=== PATIENT | female | born 1985 | race Caucasian/White ===

== ENCOUNTER 2025-01-13 16:20 | Inpatient (IN) | payer BC, OTHER ==
[~2025-01-13] VITALS: Ht 154.9 cm; Wt 105.0 kg
--- NOTE | 2025-01-13 16:27 | ED.PDOC ---
History of Present Illness HPI Comments 40 year old female presents to the ED for the c/c of SOB. Pt states that she has been sick since the 03 of January, and went to [facility] and has Dx with Bronchitis. Pt states that her SOB has not improved and has a worsening factor when walking and Coughing. EMS states that she is currently SAT on 94% RA at this point in time. No other symptoms or modifying factors reported at this time. Time Seen by MD: 16:23 Reviewed Notes: Nurses Notes, Audience Coordinator Notes, Medications, Allergies Allergies: Coded Allergies: Codeine (Verified Allergy, Mild, 01/13/25) UPSET STOMACH PER PT Niacin (Verified Allergy, Unknown, 01/13/25) Information Source: Patient, Emergency Med Personnel Mode of Arrival: EMS Severity: Moderate Prehospital treatment: Oxygen Past Medical History PAST MEDICAL HISTORY: Denies Surgical History: Denies all surgeries [employer]PER[employer]OR [employer] History: No Pertinent [employer]PER[employer] History Family History Family History: Reviewed,noncontributory to illness, No family hx of Cancer, No family hx of DM, No family hx of Heart claudia, No family hx of HTN, No family hx ofKidney claudia, No family hx of Liver claudia, No family hx of Lung claudia, No family hx of Stroke Social History Smoker: Non-Smoker Alcohol: Rarely Drugs: Denies Drug Use Lives In: Home Constitutional: denies: chills, diaphoresis, fatigue, fever, malaise, sweats, w eakness, others EENTM: denies: blurred vision, double vision, ear bleeding, ear discharge, ear drainage, ear pain, ear ringing, eye pain, eye redness, hearing loss, mouth pain, mouth swelling, nasal discharge, nose bleeding, nose congestion, nose pain, photophobia, tearing, throat pain, throat swelling, voice changes, others Respiratory: reports: SOB at rest, shortness of breath, SOB with excertion; de nies: cough, hemoptysis, orthopnea, stridor, wheezing, others Cardiovascular: denies: chest pain, dizzy spells, diaphoresis, Dyspnea on exertion, edema, irregular heart beat, left arm pain, lightheadedness, palpitations, PND, syncope, others Gastrointestinal: denies: abdomen distended, abdominal pain, blood streaked bowels, constipated, diarrhea, dysphagia, difficulty swallowing, hematemesis, melena, nausea, poor appetite, poor fluid intake, rectal bleeding, rectal pain, vomiting, others Genitourinary: denies: abnormal vagina bleeding, burning, dyspareunia, dysuria, flank pain, frequency, hematuria, incontinence, pain, , vagina discharge, urgency, others Neurological: denies: dizziness, fainting, headache, left sided numbness, left sided weakness, numbness, paresthesia, pre-existing deficit, right sided numbness, right sided weakness, seizure, speech problems, tingling, tremors, weakness, others Musculoskeletal: denies: back pain, gout, joint pain, joint swelling, muscle pain, muscle stiffness, neck pain, others Integumetry: denies: bruises, change in color, change in hair/nails, dryness, laceration, lesions, lumps, rash, wounds, others Allergic/Immunocompromised: denies: Difficulty Healing, Frequent Infections, Hives, Itching, others Hematologic/Lymphatic: denies: anemia, blood clots, easy bleeding, easy bruising, swollen glands, others Endocrine: denies: excessive hunger, excessive sweating, excessive thirst, excessive urination, flushing, intolerance to cold, intolerance to heat, unexplained weight gain, unexplained weight loss, others Psychiatric: denies: anxiety, bipolar disorder, depression, hopeless, panic disorder, schizophrenia, sleepless, suicidal, others All Other Systems: Reviewed and Negative Physical Exam General Appearance: Moderate Distress HEENT: Normal ENT Inspection, Pharynx Normal, TMs Normal Neck: Full Range of Motion, Non-Tender, Normal, Normal Inspection Respiratory: Chest Non-Tender, Lungs Clear, No Accessory Muscle Use, No Respiratory Distress, Normal Breath Sounds Cardiovascular: No Edema, No JVD, No Murmur, No Gallop, Tachycardia Breast Exam: Deferred Gastrointestinal: No Organomegaly, Non Tender, No Pulsatile Mass, Normal Bowel Sounds, Soft Genitalia: Deferred Pelvic: Deferred Rectal: Deferred Extremities: No calf tenderness, Normal capillary refill, No pedal edema Musculoskeletal : Apperance: Normal Neurologic: Alert, communications technologist II-XII nml as Tested, Motor Weakness, Normal Affect, Normal Mood, No Sensory Deficits Cerebellar Function: Normal Reflexes: Normal Skin: Dry, Normal Color, Warm Lymphatic: No Adenopathy Was a procedure done? Was a procedure done?: No Differential Dx Considerations may include: Sepsis, pneumonia, generalized weakness, electrolyte imbalance, dehydration X-Ray, Labs, Meds, VS Vital Signs Date Time Temp Pulse Resp B/P (MAP) Pulse Ox O2 Delivery O2 Flow Rate FiO2 01/13/25 18:52 139 16 135/79 (97) 92 01/13/25 17:04 16 96 Nasal Cannula* 3 32 01/13/25 16:57 97.6 152 18 165/80 (108) 95 97.6 01/13/25 16:57 152 18 95 Nasal Cannula* 3 32 01/13/25 16:40 20 94 Nasal Cannula* 4 36 01/13/25 16:40 98.2 147 20 138/107 (117) 94 98.2 01/13/25 16:20 132 Lab Test 01/13/25 18:12 01/13/25 17:00 01/13/25 16:40 Range/Units Troponin I High Sensitivity 4 4 </=34 ng/L Urine Color Light-yellow Yellow Urine Clarity Turbid H Clear Urine pH 6.5 5.0-9.0 Urine Specific [place] 1.008 1.001-1.035 Urine Protein Negative Negative Urine Ketones 1+ H Negative Urine Blood 2+ H Negative /uL Urine Nitrite Negative Negative Urine Bilirubin Negative Negative Urine Urobilinogen Normal Negative mg/dL Urine Leukocyte Esterase Trace Negative /uL Urine RBC 3 0 - 4 /hpf Urine Microscopic WBC 1 0-5 /HPF Urine Squamous Epithelial Cells Mod <5 /hpf Urine Bacteria Few H None Seen /hpf Urine Glucose Normal Normal mg/dL Urine Opiates Screen Pos NEGATIVE Urine Fentanyl Screen Neg NEGATIVE Urine Barbiturates Screen Neg NEGATIVE Urine Phencyclidine Screen Neg NEGATIVE Urine Amphetamines Screen Neg NEGATIVE Urine Benzodiazepines Screen Neg NEGATIVE Urine Cocaine Screen Neg NEGATIVE Urine Cannabinoids Screen Neg NEGATIVE White Blood Count 15.7 H 4.4-10.8 10^3/uL Red Blood Count 5.36 H 4.0-5.20 10^6/uL Hemoglobin 15.6 12.2-16.2 g/dL Hematocrit 45.3 36.0-46.0 % Mean Corpuscular Volume 84.6 80.0-100.0 fL Mean Corpuscular Hemoglobin 29.0 28.0-32.0 pg Mean Corpuscular Hemoglobin Concent 34.3 32.0-36.0 g/dL Red Cell Distribution Width 13.4 11.8-14.3 % Platelet Count 589 H 140-450 10^3/uL Mean Platelet Volume 5.9 L 6.9-10.8 fL Neutrophils (%) (Auto) 91.5 H 37.0-80.0 % Lymphocytes (%) (Auto) 5.2 L 10.0-50.0 % Monocytes (%) (Auto) 2.4 0.0-12.0 % Eosinophils (%) (Auto) 0.1 0.0-7.0 % Basophils (%) (Auto) 0.8 0.0-2.0 % Neutrophils # (Auto) 14.4 H 1.6-8.6 10 ^3/uL Lymphocytes # (Auto) 0.8 0.4-5.4 10 ^3/uL Monocytes # (Auto) 0.4 0-1.3 10 ^3/uL Eosinophils # (Auto) 0 0-0.8 10 ^3/uL Basophils # (Auto) 0.1 0-0.2 10 ^3/uL Nucleated Red Blood Cells 0.0 % D-Dimer, Quantitative 0.29 0.0-0.49 mg/L FEU Sodium Level 140 136-145 mmol/L Potassium Level 3.3 L 3.5-5.1 mmol/L Chloride Level 104 98-107 mmol/L Carbon Dioxide Level 22 20-31 mmol/L Anion Gap 14 5-15 Blood Urea Nitrogen 9 9-23 mg/dL Creatinine 0.71 0.550-1.02 mg/dL Glomerular Filtration Rate Calc 110 >90 mL/min BUN/Creatinine Ratio 12.7 10.0-20.0 Serum Glucose 148 H 74-106 mg/dL Calcium Level 10.0 8.7-10.4 mg/dL B-Type Natriuretic Peptide 5.01 0-100 pg/mL Thyroid Stimulating Hormone (TSH) 0.89 0.55-4.78 uIU/mL Current Medications Medications (Trade) Dose Ordered Sig/Jazmin Route Start Time Stop Time Status Last Admin Methylprednisolone Sodium Succinate (Solu Medrol) 125 mg ONCE ONCE IV 01/13/25 16:30 01/13/25 16:31 DC 01/13/25 17:58 Ipratropium [place] (Atrovent Medneb) 1 mg ONCE ONCE HHN 01/13/25 16:30 01/13/25 16:31 DC 6/23/25 17:04 Albuterol (Ventolin Medneb) 10 mg ONCE ONCE HHN 01/13/25 16:30 01/13/25 16:31 DC 01/13/25 17:03 Acetaminophen/ Hydrocodone Bitart ([place] 10/325MG Tab) 1 tab ONCE ONCE PO 01/13/25 18:15 01/13/25 18:16 DC 01/13/25 18:30 Sodium Chloride 1,000 ml @ 1,000 mls/hr Q1H ONCE IV 01/13/25 19:15 01/13/25 20:14 DC 01/13/25 19:32 IMPRESSION: No acute cardiopulmonary process. The patient was given Solu-Medrol 125 mg IV push The patient was also given Atrovent as a breathing treatment The patient was given [place] for the pain The patient was given 1 L bolus of normal saline The TSH is within normal range The patient's CBC shows an elevated white blood cell count of 15.7 The patient is being given medications per sepsis protocol The patient is being given Rocephin and vancomycin The urine test is negative for any infection The patient is being admitted Images Reviewed?: Images reviewed and evaluated by me Time of 1ST Reevaluation: 16:53 Reevaluation 1ST: Unchanged Patient Education/Counseling: Diagnosis, Treatment, Prognosis Family Education/Counseling: No Family Present SEPSIS Sepsis Screen Physician Orders Med Neb Initial Treatment (01/13/25 16:24) Chest Portable (01/13/25 16:24) Heplock Iv (01/13/25 16:24) Pulse Oximetry (01/13/25 16:24) Printing Plate Clerk (01/13/25 16:24) Blood Pressure (01/13/25 16:24) Troponin-I Hs (01/13/25 19:24) Electrocardigram (01/13/25 17:24) Electrocardigram (01/13/25 19:24) Blood Culture (01/13/25 19:01) Vital Signs Date Time Temp Pulse Resp B/P (MAP) Pulse Ox O2 Delivery O2 Flow Rate FiO2 01/13/25 18:52 139 16 135/79 (97) 92 01/13/25 17:04 16 96 Nasal Cannula* 3 32 01/13/25 16:57 97.6 152 18 165/80 (108) 95 97.6 01/13/25 16:57 152 18 95 Nasal Cannula* 3 32 01/13/25 16:40 20 94 Nasal Cannula* 4 36 01/13/25 16:40 98.2 147 20 138/107 (117) 94 98.2 01/13/25 16:20 132 Laboratory Tests Test 01/13/25 16:40 White Blood Count 15.7 10^3/uL (4.4-10.8) H Medications Medications Dose Ordered Sig/Jazmin Route Start Time Stop Time Status Last Admin Dose Admin Acetaminophen/ Hydrocodone Bitart 1 tab ONCE ONCE PO 01/13/25 18:15 01/13/25 18:16 DC 01/13/25 18:30 Albuterol 10 mg ONCE ONCE HHN 01/13/25 16:30 01/13/25 16:31 DC 01/13/25 17:03 Ipratropium [place] 1 mg ONCE ONCE N 01/13/25 16:30 01/13/25 16:31 DC 01/13/25 17:04 Methylprednisolone Sodium Succinate 125 mg ONCE ONCE IV 01/13/25 16:30 01/13/25 16:31 DC 01/13/25 17:58 Sodium Chloride 1,000 ml @ 1,000 mls/hr Q1H ONCE IV 01/13/25 19:15 01/13/25 20:14 DC 01/13/25 19:32 Departure 1 Departure Time of Disposition: 21:36 Impression: Primary Impression: Tachycardia Additional Impressions: Acute respiratory distress Elevated lactic acid level Generalized weakness Disposition: ADMITTED INPATIENT [facility]mit to: [facility] Condition: Fair Critical Care Note Critical Care Time?: Yes (45 min-critical care time only) Stability Stability form required: Yes Unstable for transfer: Telemetry monitoring (Telemetry monitoring required), ED Physician Assesment (Clinical assesment) Heart Score Heart Score: Heart Score Response (Comments) Value History N/A 0 EKG N/A 0 Age N/A 0 Risk Factors N/A 0 Troponin N/A 0 Total 0 I personally scribed for ELIEZER MCADAMS MD ([email or web address]) on 01/13/25 at 16:27. Electronically submitted by Isaías Headley ([email or web address]). I personally scribed for ELIEZER MCADAMS MD ([email or web address]) on 01/13/25 at 18:47. Electronically submitted by Isaías Headley ([email or web address]). ELIEZER MCADAMS MD Jan 13, 2025 16:27
[2025-01-13 16:57] VITALS: PULSE 152; RESP 18; O2SAT 95
[2025-01-13 16:58] LABS: Nucleated Red Blood Cells % 0.0 %
[2025-01-13 17:00] LABS: Hematocrit 45.3 % (36.0-46.0); Hemoglobin 15.6 g/dL (12.2-16.2); Mean Corpuscular Hemoglobin 29.0 pg (28.0-32.0); Mean Corpuscular Volume 84.6 fL (80.0-100.0)
[2025-01-13] MEDS: ALBUTEROL SULF 2.5 MG/0.5ML(0.5%) NEB SOLN HHN ONE (17:03)
[2025-01-13] MEDS: IPRATROPIUM BROM 0.5 MG/2.5ML INH SOL HHN ONE (17:04)
[2025-01-13 17:10] LABS: Chloride 104 mmol/L (98-107); Sodium 140 mmol/L (136-145)
--- NOTE | 2025-01-13 17:10 | DVH ---
EXAM: XR Chest, 1 View CLINICAL INDICATION: sob TECHNIQUE: Frontal view of the chest. COMPARISON: No relevant prior studies available. FINDINGS: LUNGS AND PLEURAL SPACES: Unremarkable. No consolidation. No pneumothorax. HEART: Unremarkable. No cardiomegaly. MEDIASTINUM: Unremarkable. Normal mediastinal contour. BONES/JOINTS: Unremarkable. No acute fracture. OTHER FINDINGS: Comparison None. IMPRESSION: No acute cardiopulmonary process. HS:Y
[2025-01-13 17:11] LABS: Anion Gap 14 (5-15); Carbon Dioxide 22 mmol/L (20-31)
[2025-01-13 17:12] LABS: Calcium 10.0 mg/dL (8.7-10.4)
[2025-01-13 17:13] LABS: Potassium 3.3 mmol/L (3.5-5.1)
[2025-01-13 17:17] LABS: BUN/Creatinine Ratio 12.7 (10.0-20.0)
[2025-01-13 17:18] LABS: Blood Urea Nitrogen 9 mg/dL (9-23); Glucose 148 mg/dL (74-106)
[2025-01-13 17:34] LABS: Urine Protein, UAD Negative (Negative)
[2025-01-13] MEDS: methylPREDNISolone SOD SUCC 125 MG/2 ML VL IV ONE (17:58)
[2025-01-13] MEDS: HYDROcodone-ACET 10/325MG TAB PO ONE (18:30)
--- NOTE | 2025-01-13 18:55 | ECG ---
[facility] Test Date: 2025-01-13 Test Time: 16:20:08 Pat Name: NICOLE TERAN Department: ED Room: 0215T Gender: F Parlor Maid: DULCE : 1985 Requested By: ELIEZER MCADAMS Order Number: [id number] Reading MD: Amos Asencio Measurements Intervals [place] Rate: 132 P: 69 MN: 145 QRS: 8 QRSD: 75 T: 34 QT: 293 QTc: 434 Interpretive Statements Sinus tachycardia Electronically Signed On 01-14-2025 22:56:01 PDT by Amos Asencio Please click the below link to view image of tracing.
[2025-01-13] MEDS: SODIUM CHLORIDE 0.9% 1,000 ML IV ONE ×2 (19:32→22:00)
[2025-01-13 20:00] VITALS: BP 135/79; PULSE 139; RESP 16; TEMP 97.6; O2SAT 96
[2025-01-13] MEDS ORDERED: ACETAMINOPHEN 325 MG TAB PO PRN (20:00)
[2025-01-13] MEDS ORDERED: MORPHINE SULFATE INJ 2 MG/ml SYRG IV PRN (20:00)
[2025-01-13] MEDS ORDERED: ONDANSETRON HCL 4 MG/2 ML VIAL IV PRN (20:00)
[2025-01-13] MEDS: AZITHROMYCIN 500MG/ 250ML 250 ML IV ONE (20:00)
[2025-01-13] MEDS ORDERED: NITROGLYCERIN 0.4 MG SL TAB SL PRN (20:00)
[2025-01-13] MEDS ORDERED: TEMAZEPAM 15 MG CAP PO PRN (20:00)
[2025-01-13 20:20] VITALS: PULSE 128; RESP 20; O2SAT 96
--- NOTE | 2025-01-13 20:39 | DVH ---
Procedure: CT CHEST WITHOUT CONTRAST Reason for study/Clinical History: sob Comparison Study: None Exam Date: 01/13/2025 08:07 PM TECHNIQUE: Multidetector CT of the chest was performed from the lung apices to the upper abdomen with out the use of intravenous contract. Axial, coronal and sagittal multiplanar reformats were performed . Radiation Dose Information: CT Dose: CTDI volume is 14.91 mGy. Dose-length product is 485.01 mGy*cm The dose indicators for CT are the volume Computed Tomography (CT) Dose Index (CTDIvol) and the Dose Length Product (DLP), and are measured in units of mGy and mGy-cm, respectively. These indicators are not patient dose, but values generated from the CT scanner acquisition factors. The report includes radiation exposure data for exposures received during this examination. FINDINGS: Lower neck: Normal thyroid. Lungs: Multifocal pneumonia throughout both lungs, most prominent in the left lower lobe. Heart/Vascular Structures: Normal heart size. No pericardial effusion. Lymph Nodes: Mediastinal lymphadenopathy, likely reactive. Pleura: No pleural effusion or significant pneumothorax. Musculoskeletal: No acute osseous abnormality. Soft tissues: Normal. Upper abdomen: Limited portions of the upper abdomen are unremarkable. IMPRESSION: 1. Multifocal pneumonia throughout both lungs, most prominent in the left lower lobe. 2. Mediastinal lymphadenopathy, likely reactive Radiation optimization: All CT scans at this facility use at least one of these dose optimization adam hniques: automated exposure control mA and/or kV adjustment per patient size (includes targeted exam s where dose is matched to clinical indication) or iterative reconstruction.
[2025-01-13 20:40] LABS: Phencyclidine Screen, Urine Neg (NEGATIVE)
[2025-01-13 20:50] LABS: Amphetamine Screen, Urine Neg (NEGATIVE); Barbiturate Scree,Urine Neg (NEGATIVE); Benzodiazephine Screen, Urine Neg (NEGATIVE); Cannabinoid Screen, Urine Neg (NEGATIVE); Cocaine Screen, Urine Neg (NEGATIVE); Opiate Scree,Urine Pos (NEGATIVE)
[2025-01-13 20:54] LABS: Lactic Acid w/Reflex 4.8 mmol/L (0.4-2.0)
[2025-01-13] MEDS: methylPREDNISolone SOD SUCC 40 MG/ML VL IV SCH (20:54)
[2025-01-13] MEDS: SODIUM CHLORIDE 0.9% 500 ML IV ONE (21:00)
--- NOTE | 2025-01-13 21:07 | DVHHP2 ---
History of Present Illness Reason for Visit: Shortness for breath History of Present Illness 40-year-old female presents for evaluation of shortness for breath. Patient reports being seen at [facility] two weeks ago and was diagnosed with acute bronchitis. She was sent home with prednisone and Augmentin. She states her symptoms have not resolved. She reports having a productive cough with yellowish phlegm. She reports worsening shortness for breath and unable to take deep breaths. Denies chest pain or palpitations. No other acute complaints reported. Past Medical History Hypertension Past Surgical History Denies Family History Noncontributory Smoke: No ALCOHOL: occassional Drugs: None Lives: with Family Review of Systems Review of Systems Review of systems are currently negative addressed in HPI. Allergies: Coded Allergies: Codeine (Verified Allergy, Mild, 01/13/25) UPSET STOMACH PER PT Niacin (Verified Allergy, Unknown, 01/13/25) Medications Current Medications Medications Dose Ordered Sig/Jazmin Route Start Time Stop Time Status Last Admin Dose Admin Albuterol 2.5 mg Q6HPRN PRN NEB 01/13/25 20:00 Ipratropium [place] 0.5 mg Q6HPRN PRN NEB 01/13/25 20:00 Azithromycin 250 ml @ 125 mls/hr DAILY IV 01/14/25 10:00 Methylprednisolone Sodium Succinate 40 mg BID IV 01/13/25 22:00 01/13/25 20:54 40 MG Amlodipine [place] 10 mg DAILY PO 01/14/25 10:00 Acetaminophen/ Hydrocodone Bitart 1 tab Q4HP PRN PO 01/13/25 20:00 Temazepam 15 mg QHSP PRN PO 01/13/25 20:00 Ondansetron HCl 4 mg Q4HP PRN IV 01/13/25 20:00 Acetaminophen 650 mg Q6HP PRN PO 01/13/25 20:00 Nitroglycerin 0.4 mg Q5MINP PRN SL 01/13/25 20:00 Morphine Sulfate 2 mg Q30M PRN IV 01/13/25 20:00 Exam Vital Signs Vital Signs Date Time Temp Pulse Resp B/P (MAP) Pulse Ox O2 Delivery O2 Flow Rate FiO2 01/13/25 20:20 128 20 96 Nasal Cannula* 3 32 01/13/25 20:20 98.1 141/88 (105) 98.1 Exam Gen: 40-year-old female in mild distress, morbidly obese Skin: Warm, dry, normal color and texture, no rash. HEENT: Normocephalic atraumatic, mucous membranes moist and pink. Neck: Cervical and supraclavicular nodes normal without enlargement, trachea is midline, thyroid gland is normal without masses. Pulmonary: Diminished breath sounds bilaterally Cardiac: Sinus tachycardia Abdomen: Soft, nontender, nondistended, bowel sounds present all 4 quadrants, no guarding, no rigidity, no organomegaly. Extremities: No cyanosis, clubbing, no edema Neuro: Cranial nerves II through XII grossly intact, normal affect and speech, no focal motor deficits. Labs/Xrays ORDERING PHYSICIAN: ELIEZER MCADAMS MD PROCEDURE(s): CXRP - CHEST PORTABLE REASON: sob ORDER NUMBER(s): [id number], ACCESSION NUMBER(s): [id number] EXAM: XR Chest, 1 View CLINICAL INDICATION: sob TECHNIQUE: Frontal view of the chest. COMPARISON: No relevant prior studies available. FINDINGS: LUNGS AND PLEURAL SPACES: Unremarkable. No consolidation. No pneumothorax. HEART: Unremarkable. No cardiomegaly. MEDIASTINUM: Unremarkable. Normal mediastinal contour. BONES/JOINTS: Unremarkable. No acute fracture. OTHER FINDINGS: Comparison None. IMPRESSION: No acute cardiopulmonary process. HS:Y RING PHYSICIAN: OG CLEMENTE PROCEDURE(s): CX2CT - CHEST WITHOUT CONTRAST REASON: sob ORDER NUMBER(s): [id number], ACCESSION NUMBER(s): [id number] Procedure: CT CHEST WITHOUT CONTRAST Reason for study/Clinical History: sob Comparison Study: None Exam Date: 01/13/2025 08:07 PM TECHNIQUE: Multidetector CT of the chest was performed from the lung apices to the upper abdomen without the use of intravenous contract. Axial, coronal and sagittal multiplanar reformats were performed. Radiation Dose Information: CT Dose: CTDI volume is 14.91 mGy. Dose-length product is 485.01 mGy*cm The dose indicators for CT are the volume Computed Tomography (CT) Dose Index (CTDIvol) and the Dose Length Product (DLP), and are measured in units of mGy and mGy-cm, respectively. These indicators are not patient dose, but values generated from the CT scanner acquisition factors. The report includes radiation exposure data for exposures received during this examination. FINDINGS: Lower neck: Normal thyroid. Lungs: Multifocal pneumonia throughout both lungs, most prominent in the left lower lobe. Heart/Vascular Structures: Normal heart size. No pericardial effusion. Lymph Nodes: Mediastinal lymphadenopathy, likely reactive. Pleura: No pleural effusion or significant pneumothorax. Musculoskeletal: No acute osseous abnormality. Soft tissues: Normal. Upper abdomen: Limited portions of the upper abdomen are unremarkable. IMPRESSION: 1. Multifocal pneumonia throughout both lungs, most prominent in the left lower lobe. 2. Mediastinal lymphadenopathy, likely reactive Radiation optimization: All CT scans at this facility use at least one of these dose optimization techniques: automated exposure control mA and/or kV adjustment per patient size (includes targeted exams where dose is matched to clinical indication) or iterative reconstruction. Labs Test 01/13/25 20:51 01/13/25 20:07 01/13/25 17:00 01/13/25 16:40 Range/Units Lactic Acid Level 4.8 *H 0.4-2.0 mmol/L Urine Color Light-yellow Yellow Urine Clarity Turbid H Clear Urine pH 6.5 5.0-9.0 Urine Specific [place] 1.008 1.001-1.035 Urine Protein Negative Negative Urine Ketones 1+ H Negative Urine Blood 2+ H Negative /uL Urine Nitrite Negative Negative Urine Bilirubin Negative Negative Urine Urobilinogen Normal Negative mg/dL Urine Leukocyte Esterase Trace Negative /uL Urine RBC 3 0 - 4 /hpf Urine Microscopic WBC 1 0-5 /HPF Urine Squamous Epithelial Cells Mod <5 /hpf Urine Bacteria Few H None Seen /hpf Urine Glucose Normal Normal mg/dL Urine Opiates Screen Pos NEGATIVE Urine Fentanyl Screen Neg NEGATIVE Urine Barbiturates Screen Neg NEGATIVE Urine Phencyclidine Screen Neg NEGATIVE Urine Amphetamines Screen Neg NEGATIVE Urine Benzodiazepines Screen Neg NEGATIVE Urine Cocaine Screen Neg NEGATIVE Urine Cannabinoids Screen Neg NEGATIVE White Blood Count 15.7 H 4.4-10.8 10^3/uL Red Blood Count 5.36 H 4.0-5.20 10^6/uL Hemoglobin 15.6 12.2-16.2 g/dL Hematocrit 45.3 36.0-46.0 % Mean Corpuscular Volume 84.6 80.0-100.0 fL Mean Corpuscular Hemoglobin 29.0 28.0-32.0 pg Mean Corpuscular Hemoglobin Concent 34.3 32.0-36.0 g/dL Red Cell Distribution Width 13.4 11.8-14.3 % Platelet Count 589 H 140-450 10^3/uL Mean Platelet Volume 5.9 L 6.9-10.8 fL Neutrophils (%) (Auto) 91.5 H 37.0-80.0 % Lymphocytes (%) (Auto) 5.2 L 10.0-50.0 % Monocytes (%) (Auto) 2.4 0.0-12.0 % Eosinophils (%) (Auto) 0.1 0.0-7.0 % Basophils (%) (Auto) 0.8 0.0-2.0 % Neutrophils # (Auto) 14.4 H 1.6-8.6 10 ^3/uL Lymphocytes # (Auto) 0.8 0.4-5.4 10 ^3/uL Monocytes # (Auto) 0.4 0-1.3 10 ^3/uL Eosinophils # (Auto) 0 0-0.8 10 ^3/uL Basophils # (Auto) 0.1 0-0.2 10 ^3/uL Nucleated Red Blood Cells 0.0 % D-Dimer, Quantitative 0.29 0.0-0.49 mg/L FEU Sodium Level 140 136-145 mmol/L Potassium Level 3.3 L 3.5-5.1 mmol/L Chloride Level 104 98-107 mmol/L Carbon Dioxide Level 22 20-31 mmol/L Anion Gap 14 5-15 Blood Urea Nitrogen 9 9-23 mg/dL Creatinine 0.71 0.550-1.02 mg/dL Glomerular Filtration Rate Calc 110 >90 mL/min BUN/Creatinine Ratio 12.7 10.0-20.0 Serum Glucose 148 H 74-106 mg/dL Calcium Level 10.0 8.7-10.4 mg/dL B-Type Natriuretic Peptide 5.01 0-100 pg/mL Thyroid Stimulating Hormone (TSH) 0.89 0.55-4.78 uIU/mL Assessment/Plan Assessment/Plan Assessment Multifocal pneumonia Acute respiratory distress Early sepsis Morbid obesity Plan Admit the patient to telemetry to the hospitalist Maintenance IV fluids Rocephin/azithromycin Methylprednisone Med nebs Continue treatment per orders. Plan discussed with: Patient My Orders Orders - OG CLEMENTE AGACNP Procedure Category Date Status Time Albuterol Medneb PHA 01/13/25 In Process (Ventolin Medneb) 20:00 Ipratropium Medneb PHA 01/13/25 In Process (Atrovent Medneb) 20:00 Azithromycin 500mg/ PHA 01/14/25 In Process 250ml (Zithromax 50 10:00 Azithromycin 500mg/ PHA 01/13/25 In Process 250ml (Zithromax 50 20:[address] 01/13/25 Resulted 19:46 Methylprednisolone PHA 01/13/25 In Process Sod Succ (Solu Medrol 22:00 Amlodipine Tablet PHA 01/14/25 In Process (Norvasc Tablet) 10:00 Basic Metabolic Panel LAB 01/14/25 Verified 04:00 Admit ADMIT 01/13/25 Transmitted 19:46 Hydrocodone-Acet PHA 01/13/25 In Process 5/325mg Tab ([place] 20:00 Temazepam (Restoril) PHA 01/13/25 In Process 20:00 Ondansetron Hcl PHA 01/13/25 In Process (Zofran) 20:00 Complete Blood Count LAB 01/14/25 Verified 04:00 Cardiac DIET 01/14/25 Transmitted Diet-2gna,Lofat,Lochol Breakfast Echo 2d Mode Cardiac US 01/13/25 Logged DOP 19:46 Condition: Fair TESSA 01/13/25 In Process 19:46 Acetaminophen Tablet PHA 01/13/25 In Process (Tylenol Tablet) 20:00 Bedrest With Bathroom TESSA 01/13/25 In Process Privileg 19:46 Nitroglycerin PHA 01/13/25 In Process Sublingual (Ntrostat 20:00 Morphine Sulfate PHA 01/13/25 In Process Injection 20:00 Stat Ekg For Chest TESSA 01/13/25 In Process Pain 19:46 Notify Of Changes TESSA 01/13/25 In Process From Base 19:46 Cab Station Attendant For TESSA 01/13/25 In Process 24 Hours 19:46 Emergency Dysrhythmia TESSA 01/13/25 In Process Protocol 19:46 Rhythm Strips Once TESSA 01/13/25 In Process Every Shift 19:46 Oxygen By Nasal RT 01/13/25 Transmitted Cannula 19:46 Sodium Chloride 0.9% PHA 01/13/25 Logged 21:00 Date of Service: Jan 13, 2025 Billing Provider: OG CLEMENTE Common Visit Codes: [id number] INP/OBS CARE (HIGH) OG CLEMENTE Jan 13, 2025 21:07
[2025-01-13] MEDS: SODIUM CHLORIDE 0.9% 1,450 ML IV ONE (21:45)
[2025-01-13] MEDS ORDERED: VANCOMYCIN PER PHARMACY 0 MG IV SCH ×3 (21:48→22:15)
[2025-01-13] MEDS: VANCOMYCIN 1GM/200ML PM 200 ML IV SCH (22:00)
[2025-01-13] MEDS: cefTRIAXone 1GM/50ML D5W 50 ML IV ONE (22:09)
[2025-01-13] MEDS: HYDROcodone-ACET 5/325MG TAB PO PRN (22:09)
[2025-01-14] VITALS (7 sets, daily range): BP systolic 138–160; BP diastolic 97–106; PULSE 100–133; RESP 18–20; TEMP 97.7–98.4; O2SAT 93–97
[2025-01-14 02:01] LABS: COVID19 ANTIGEN SOFIA FIA NEGATIVE (NEGATIVE)
[2025-01-14 06:54] LABS: Nucleated Red Blood Cells % 0.0 %
[2025-01-14 06:59] LABS: Hematocrit 42.4 % (36.0-46.0); Hemoglobin 14.4 g/dL (12.2-16.2); Mean Corpuscular Hemoglobin 28.4 pg (28.0-32.0); Mean Corpuscular Volume 83.9 fL (80.0-100.0)
[2025-01-14 07:02] LABS: Potassium 3.7 mmol/L (3.5-5.1); Sodium 144 mmol/L (136-145)
[2025-01-14 07:03] LABS: Anion Gap 13 (5-15); Calcium 9.6 mg/dL (8.7-10.4); Carbon Dioxide 22 mmol/L (20-31)
[2025-01-14 07:07] LABS: Chloride 109 mmol/L (98-107)
[2025-01-14 07:08] LABS: BUN/Creatinine Ratio 12.7 (10.0-20.0); Blood Urea Nitrogen 9 mg/dL (9-23)
[2025-01-14 07:09] LABS: Glucose 174 mg/dL (74-106)
[2025-01-14] MEDS ORDERED: VANCOMYCIN 1GM/200ML PM 200 ML IV ONE (09:00)
[2025-01-14] MEDS: cefTRIAXone 1GM/50ML D5W 50 ML IV SCH (09:04)
[2025-01-14] MEDS: VANCOMYCIN 1GM/200ML PM 200 ML IV ONE (09:20)
[2025-01-14] MEDS: AZITHROMYCIN 500MG/ 250ML 250 ML IV SCH (10:25)
[2025-01-14] MEDS ORDERED: OXY5T PO (15:34)
[2025-01-14] MEDS ORDERED: DOCU-265 PO (15:34)
[2025-01-14] MEDS ORDERED: HYDR-4072 PO (15:36)
[2025-01-14] MEDS ORDERED: AMLO1TAB22 PO (15:38)
[2025-01-14] MEDS ORDERED: AML5T PO (15:38)
--- NOTE | 2025-01-14 18:46 | DVHPNRES ---
Progress Note Date Seen: Jan 14, 2025 Resident Creating Document: BERYL SOLIS RESIDENT Has the PT tested + for MRSA If YES, has PT been informed?: No Medical Necessity Reason Pt with a Central, PICC or Fol: No Subjective Review of Systems 40-year-old female presents for evaluation of shortness for breath. Patient reports being seen at [facility] two weeks ago and was diagnosed with acute bronchitis. She was sent home with prednisone and Augmentin. She states her symptoms have not resolved. She reports having a productive cough with yellowish phlegm. She reports worsening shortness for breath and unable to take deep breaths. Denies chest pain or palpitations. No other acute complaints reported. Past Medical History Hypertension, autoimmnue disease? , neuropathic pain Past Surgical History Denies Family History Noncontributory Smoke: No ALCOHOL: occassional Drugs: None Lives: with Family 01/14/25: wbc is elevated, HR120- 110, CT scan: Multifocal pneumonia throughout both lungs, most prominent in the left lower lobe and Mediastinal lymphadenopathy, likely reactive, patient was started on ceftriaxone, vancomtycin and azithromycin, vanco is DC, ddimer neg Objective vital signs Vital Sign Date Time Temp Pulse Resp B/P (MAP) Pulse Ox O2 Delivery O2 Flow Rate FiO2 01/14/25 16:41 97.8 114 18 160/97 (118) 94 97.8 01/14/25 14:54 Nasal Cannula* 2 28 medications Current Medications Medications Dose Ordered Sig/Jazmin Route Start Time Stop Time Status Last Admin Dose Admin Albuterol 2.5 mg Q6HPRN PRN NEB 01/13/25 20:00 Ipratropium [place] 0.5 mg Q6HPRN PRN NEB 01/13/25 20:00 Azithromycin 250 ml @ 125 mls/hr DAILY IV 01/14/25 10:00 01/14/25 10:25 125 MLS/HR Methylprednisolone Sodium Succinate 40 mg BID IV 01/13/25 22:00 01/14/25 10:08 40 MG Amlodipine Besylate 10 mg DAILY PO 01/14/25 10:00 01/14/25 10:08 10 MG Acetaminophen 650 mg Q6HP PRN PO 01/13/25 20:00 Ceftriaxone Sodium 50 ml @ 100 mls/hr DAILY@09 IV 01/14/25 09:00 01/14/25 09:04 100 MLS/HR Acetaminophen/ Hydrocodone Bitart 1 tab Q6HP PRN PO 01/14/25 16:45 Ibuprofen 400 mg Q8HP PRN PO 01/14/25 16:45 Examination Gen: 40-year-old female in mild distress, morbidly obese Skin: Warm, dry, normal color and texture, no rash. HEENT: Normocephalic atraumatic, mucous membranes moist and pink. Neck: Cervical and supraclavicular nodes normal without enlargement, trachea is midline, thyroid gland is normal without masses. Pulmonary: Diminished breath sounds bilaterally Cardiac: Sinus tachycardia Abdomen: Soft, nontender, nondistended, bowel sounds present all 4 quadrants, no guarding, no rigidity, no organomegaly. Extremities: No cyanosis, clubbing, no edema Neuro: Cranial nerves II through XII grossly intact, normal affect and speech, no focal motor deficits. laboratory and microbiology Laboratory Tests 01/14/25 06:38 Test 01/14/25 06:38 Range/Units Serum Glucose 174 H 74-106 mg/dL Problem List/Assessment/Plan Problem List/Assessment/Plan Sepsis due to Multifocal pneumonia gram+/ gram- Acute respiratory failure resolved Ho Hypertension Ho autoimmune disease Ho neuropathic pain Morbid obesity Cardiac diet IV fluids given Rocephin/azithromycin DC Methylprednisone Med nebs Pain managmnet: patient at home was on norco 10, oxycodone: here: norco 10, ibuprofen and tylenol Case discussed with Dr Samuel Full code Plan discussed with: Patient, Other (rn) My Orders My Orders Orders - BERYL SOLIS Procedure Category Date Status Time Respiratory Culture LUNA 01/14/25 Uncollected W/ Gs 08:56 Mrsa Screen LUNA 01/14/25 In Process 08:56 Hydrocodone-Acet PHA 01/14/25 In Process 10/325mg Tab ([place] 16:45 Ibuprofen Tablet PHA 01/14/25 In Process (Motrin Tablet) 16:45 Date of Service: Jan 14, 2025 Billing Provider: SUE SAMUEL MD Common Visit Codes: [id number] INP/OBS CARE(HIGH) BERYL SOLIS Jan 14, 2025 18:46 SUE SAMUEL MD Jan 20, 2025 21:35
--- NOTE | 2025-01-14 23:32 | DVHSR ---
APPROVED REPORT EXAM: Two-dimensional and M-mode echocardiogram with Doppler and color Doppler. Blood Pressure: 142/84 mmHg INDICATION EF RISK FACTORS Obesity: Height: 5'1", Weight: 225 DIMENSIONS LVDd4.6 (3.8-5.7cm)LA (2D)3.3 (1.9-4.0cm)Aortic Root3.2 (2.0-3.7cm) LVDs2.7 (2.5-4.0cm)LA (MM) (1.9-4.0cm)Aortic Cusp Exc1.7 (1.5-2.0cm) EF (%) 60.0 (55-70%)Rt. Atrium3.2 (1.9-4.0cm)Asc. Aorta cm IVSd0.8 (0.7-1.1cm)RV (D) (1.8-2.4cm) PWd0.9 (0.7-1.1cm) Mitral Valve MitralMitral Stenosis E wave1.07m/sMV Mean GR.mmHg A wave1.01m/sMV Peak GR.mmHg E/A ratio1.12D MVAcm2 DECEL [id number] 1/2 Timems Aortic Valve Aortic ValveAortic Stenosis V11.31m/Brennon Mean GR.6mmHg V21.63m/Brennon Peak GR.11mmHg LVOT Diameter1.8 (1.8-2.4cm)Doppler AVA2.04cm2 Pulmonic Valve V21.28m/s Tricuspid Valve TR Velocity2.30m/s [id number] Conclusion HYPERDYNAMIC LV LV EF IS 75% PLUS NORMAL VALVES NORMAL RV FUNCTION NO EFFUSION
[2025-01-15] VITALS (15 sets, daily range): BP systolic 128–152; BP diastolic 72–92; PULSE 83–126; RESP 17–19; TEMP 97.7–98.9; O2SAT 91–98
[2025-01-15] MEDS: IBUPROFEN 400 MG TAB PO PRN (02:48)
[2025-01-15] MEDS: HYDROcodone-ACET 10/325MG TAB PO PRN (02:49)
[2025-01-15 06:19] LABS: Hematocrit 41.7 % (36.0-46.0); Hemoglobin 14.0 g/dL (12.2-16.2); Nucleated Red Blood Cells % 0.0 %
[2025-01-15 06:22] LABS: Mean Corpuscular Hemoglobin 28.4 pg (28.0-32.0); Mean Corpuscular Volume 84.9 fL (80.0-100.0)
[2025-01-15 06:47] LABS: Alanine Aminotransferase 202 U/L (7-40); Albumin 4.0 g/dL (3.2-4.8); Alkaline Phosphatase 78 U/L (46-116); Anion Gap 14 (5-15); BUN/Creatinine Ratio 16.4 (10.0-20.0); Bilirubin, Total 0.3 mg/dL (0.2-1.0); Blood Urea Nitrogen 12 mg/dL (9-23); Calcium 8.7 mg/dL (8.7-10.4); Carbon Dioxide 23 mmol/L (20-31); Chloride 105 mmol/L (98-107); Glucose 156 mg/dL (74-106); Potassium 3.3 mmol/L (3.5-5.1); Sodium 142 mmol/L (136-145); Total Protein 6.7 g/dL (5.7-8.2)
[2025-01-15] MEDS: POTASSIUM CHL 20 Meq TABLET PO ONE (08:38)
[2025-01-15] MEDS: IPRATROPIUM BROM 0.5 MG/2.5ML INH SOL NEB PRN (11:39)
[2025-01-15] MEDS: ALBUTEROL SULF 2.5 MG/0.5ML(0.5%) NEB SOLN NEB PRN (11:39)
[2025-01-15] MEDS ORDERED: HYDROcodone-ACET 10/325MG TAB PO PRN (15:30)
[2025-01-15] MEDS: DOXYCYCLINE 100MG/100ML 100 ML IV SCH (15:57)
--- NOTE | 2025-01-15 19:08 | DVHPNRES ---
Progress Note Date Seen: Jan 15, 2025 Resident Creating Document: BERYL SOLIS RESIDENT Has the PT tested + for MRSA If YES, has PT been informed?: No Medical Necessity Reason Pt with a Central, PICC or Fol: No Subjective Review of Systems 40-year-old female presents for evaluation of shortness for breath. Patient reports being seen at [facility] two weeks ago and was diagnosed with acute bronchitis. She was sent home with prednisone and Augmentin. She states her symptoms have not resolved. She reports having a productive cough with yellowish phlegm. She reports worsening shortness for breath and unable to take deep breaths. Denies chest pain or palpitations. No other acute complaints reported. Past Medical History Hypertension, autoimmnue disease? , neuropathic pain Past Surgical History Denies Family History Noncontributory Smoke: No ALCOHOL: occassional Drugs: None Lives: with Family 01/14/25: wbc is elevated, HR120- 110, CT scan: Multifocal pneumonia throughout both lungs, most prominent in the left lower lobe and Mediastinal lymphadenopathy, likely reactive, patient was started on ceftriaxone, vancomtycin and azithromycin, vanco is DC, ddimer neg, steroids were dc 01/15/25: wbc is trending high, sputum culture came prelim with Few Gram Negative Rods, Rare Gram Positive Cocci in pairs, AB was changed to doxycicline, transaminitis ALT: AST 2: 1, acute hepatits and liver US ordered Objective vital signs Vital Sign Date Time Temp Pulse Resp B/P (MAP) Pulse Ox O2 Delivery O2 Flow Rate FiO2 01/15/25 17:00 98.9 98 19 152/81 (104) 91 98.9 01/15/25 11:39 Nasal Cannula 2.0 01/15/25 11:39 28 Total Intake and Output 01/14/25 01/14/25 01/15/25 15:00 23:00 07:00 Intake Total 300 ml 1050 ml 300 ml Balance 300 ml 1050 ml 300 ml medications Current Medications Medications Dose Ordered Sig/Jazmin Route Start Time Stop Time Status Last Admin Dose Admin Albuterol 2.5 mg Q6HPRN PRN NEB 01/13/25 20:00 01/15/25 11:39 2.5 MG Ipratropium [place] 0.5 mg Q6HPRN PRN NEB 01/13/25 20:00 01/15/25 11:39 0.5 MG Amlodipine Besylate 10 mg DAILY PO 01/14/25 10:00 01/15/25 08:53 10 MG Acetaminophen 650 mg Q6HP PRN PO 01/13/25 20:00 Ceftriaxone Sodium 50 ml @ 100 mls/hr DAILY@09 IV 01/14/25 09:00 01/15/25 08:38 100 MLS/HR Ibuprofen 400 mg Q8HP PRN PO 01/14/25 16:45 01/15/25 11:01 400 MG Doxycycline Hyclate 100 ml @ 50 mls/hr Q12H IV 01/15/25 15:30 01/15/25 15:57 50 MLS/HR Oxycodone HCl 5 mg Q6HPRN PO 01/15/25 18:00 01/15/25 18:36 5 MG Examination Gen: 40-year-old female in mild distress, morbidly obese Skin: Warm, dry, normal color and texture, no rash. HEENT: Normocephalic atraumatic, mucous membranes moist and pink. Neck: Cervical and supraclavicular nodes normal without enlargement, trachea is midline, thyroid gland is normal without masses. Pulmonary: Diminished breath sounds bilaterally Cardiac: Sinus tachycardia Abdomen: Soft, nontender, nondistended, bowel sounds present all 4 quadrants, no guarding, no rigidity, no organomegaly. Extremities: No cyanosis, clubbing, no edema Neuro: Cranial nerves II through XII grossly intact, normal affect and speech, no focal motor deficits. laboratory and microbiology Laboratory Tests 01/15/25 05:55 Test 01/15/25 05:55 Range/Units Serum Glucose 156 H 74-106 mg/dL Microbiology Date/Time Source Procedure Growth Status 01/14/25 20:23 Sputum Gram Stain - Final Resulted 01/14/25 20:23 Sputum Respiratory Culture - Preliminary Resulted 01/14/25 18:30 Nose MRSA Screen - Final Complete 01/13/25 20:12 Blood Blood Culture - Preliminary NO GROWTH AFTER 24 HOURS OF INCUBATION. Resulted Problem List/Assessment/Plan Problem List/Assessment/Plan Sepsis due to Multifocal pneumonia gram+/ gram- Acute respiratory failure resolved Ho Hypertension Ho autoimmune disease Ho neuropathic pain Morbid obesity Transaminitis Cardiac diet IV fluids given Rocephin/doxycicline DC Methylprednisone Med nebs Pain management: patient at home was on norco 10, oxycodone: here: oxycodone and ibuprofen hold on tylenol due to transaminitis 01/15/25: wbc is trending high, sputum culture came prelim with Few Gram Negative Rods, Rare Gram Positive Cocci in pairs, AB was changed to doxycicline, transaminitis ALT: AST 2: 1, acute hepatits and liver US ordered Case discussed with Dr Samuel Full code Plan discussed with: Patient, Other (rn) My Orders My Orders Orders - BERYL SOLIS RESIDENT Procedure Category Date Status Time Doxycycline PHA 01/15/25 In Process 100mg/100ml 15:30 Oxycodone Er Tablet PHA 01/15/25 In Process (Oxycontin Er Tablet 18:00 Date of Service: Jan 15, 2025 Billing Provider: SUE SAMUEL MD Common Visit Codes: [id number] INP/OBS CARE(HIGH) BERYL SOLIS RESIDENT Jan 15, 2025 19:08 SUE SAMUEL MD Jan 20, 2025 21:46
--- NOTE | 2025-01-15 19:49 | DVH ---
EXAM: US LIVER CLINICAL HISTORY: transaminits TECHNIQUE: Grayscale and limited color flow doppler ultrasound of the right upper quadrant is perfor med. COMPARISON: None Findings: Liver measures 15.1 cm in length with normal echotexture and contour. No evidence of focal hepatic le sions or intra- or extrahepatic ductal dilatation. Common bile duct measures 0.4 cm in diameter. Norm al hepatopedal flow noted within the portal vein. No perihepatic free fluid is noted. Gallbladder appears within normal limits with gallbladder wall thickness measuring 0.1 cm. No evidenc e of shadowing calculi, biliary sludge or pericholecystic fluid. Negative sonographic Vargas's sign. Pancreas only partially visualized due to overlying bowel gas but is otherwise unremarkable. Right kidney measures 11.9 cm with normal contours, echotexture and cortical thickness. No evidence o f hydronephrosis, calculi, cystic or solid renal lesions. Partially visualized inferior vena cava unremarkable. Impression: 1. No evidence of acute right upper quadrant abnormalities.
[2025-01-16] VITALS (11 sets, daily range): BP systolic 128–148; BP diastolic 79–92; PULSE 104–135; RESP 17–20; TEMP 97.6–98.9; O2SAT 93–96
[2025-01-16 07:23] LABS: Hemoglobin 15.0 g/dL (12.2-16.2)
[2025-01-16 07:24] LABS: Hematocrit 44.3 % (36.0-46.0); Mean Corpuscular Hemoglobin 29.5 pg (28.0-32.0); Mean Corpuscular Volume 87.3 fL (80.0-100.0); Nucleated Red Blood Cells % 0.0 %
[2025-01-16 07:29] LABS: Albumin 4.3 g/dL (3.2-4.8); Alkaline Phosphatase 74 U/L (46-116); Anion Gap 12 (5-15); BUN/Creatinine Ratio 16.1 (10.0-20.0); Blood Urea Nitrogen 10 mg/dL (9-23); Calcium 9.7 mg/dL (8.7-10.4); Carbon Dioxide 26 mmol/L (20-31); Chloride 102 mmol/L (98-107); Glucose 88 mg/dL (74-106); Potassium 3.9 mmol/L (3.5-5.1); Sodium 140 mmol/L (136-145); Total Protein 7.0 g/dL (5.7-8.2)
[2025-01-16 07:30] LABS: Alanine Aminotransferase 159 U/L (7-40); Bilirubin, Total 0.4 mg/dL (0.2-1.0)
--- NOTE | 2025-01-16 15:31 | DVHPNRES ---
Progress Note Date Seen: Jan 16, 2025 Resident Creating Document: BERYL SOLIS RESIDENT Has the PT tested + for MRSA If YES, has PT been informed?: No Medical Necessity Reason Pt with a Central, PICC or Fol: No Subjective Review of Systems 40-year-old female presents for evaluation of shortness for breath. Patient reports being seen at [facility] two weeks ago and was diagnosed with acute bronchitis. She was sent home with prednisone and Augmentin. She states her symptoms have not resolved. She reports having a productive cough with yellowish phlegm. She reports worsening shortness for breath and unable to take deep breaths. Denies chest pain or palpitations. No other acute complaints reported. Past Medical History Hypertension, autoimmnue disease? , neuropathic pain Past Surgical History Denies Family History Noncontributory Smoke: No ALCOHOL: occassional Drugs: None Lives: with Family 01/14/25: wbc is elevated, HR120- 110, CT scan: Multifocal pneumonia throughout both lungs, most prominent in the left lower lobe and Mediastinal lymphadenopathy, likely reactive, patient was started on ceftriaxone, vancomtycin and azithromycin, vanco is DC, ddimer neg, steroids were dc 01/15/25: wbc is trending high, sputum culture came prelim with Few Gram Negative Rods, Rare Gram Positive Cocci in pairs, AB was changed to doxycicline, transaminitis ALT: AST 2: 1, acute hepatits and liver US ordered 01/16/25: patient had an episode of HR above 160s, ABG was ordered: showing respiratory alkalosis, Aa gradient elevated, Angio CT scan was ordered to rule out PE pending official reading, troponins are negative, ddimer was also negative at admission, prophylactic anticoagulation is started. Objective vital signs Vital Sign Date Time Temp Pulse Resp B/P (MAP) Pulse Ox O2 Delivery O2 Flow Rate FiO2 01/16/25 13:00 98.5 118 20 132/79 (96) 94 98.5 01/16/25 10:00 Nasal Cannula* 2 28 Total Intake and Output 01/15/25 01/15/25 01/16/25 15:00 23:00 07:00 Intake Total 300 ml 600 ml 900 ml Balance 300 ml 600 ml 900 ml medications Current Medications Medications Dose Ordered Sig/Jazmin Route Start Time Stop Time Status Last Admin Dose Admin Albuterol 2.5 mg Q6HPRN PRN NEB 6/23/25 20:00 01/15/25 11:39 2.5 MG Ipratropium [place] 0.5 mg Q6HPRN PRN NEB 01/13/25 20:00 01/15/25 11:39 0.5 MG Amlodipine Besylate 10 mg DAILY PO 01/14/25 10:00 01/16/25 08:59 10 MG Acetaminophen 650 mg Q6HP PRN PO 01/13/25 20:00 Ceftriaxone Sodium 50 ml @ 100 mls/hr DAILY@09 IV 01/14/25 09:00 01/16/25 09:00 100 MLS/HR Ibuprofen 400 mg Q8HP PRN PO 01/14/25 16:45 01/16/25 14:19 400 MG Doxycycline Hyclate 100 ml @ 50 mls/hr Q12H IV 01/15/25 15:30 01/16/25 03:32 50 MLS/HR Oxycodone HCl 5 mg Q6HPRN PO 01/15/25 18:00 01/16/25 12:03 5 MG Examination Gen: 40-year-old female in mild distress, morbidly obese Skin: Warm, dry, normal color and texture, no rash. HEENT: Normocephalic atraumatic, mucous membranes moist and pink. Neck: Cervical and supraclavicular nodes normal without enlargement, trachea is midline, thyroid gland is normal without masses. Pulmonary: Diminished breath sounds bilaterally Cardiac: Sinus tachycardia Abdomen: Soft, nontender, nondistended, bowel sounds present all 4 quadrants, no guarding, no rigidity, no organomegaly. Extremities: No cyanosis, clubbing, no edema Neuro: Cranial nerves II through XII grossly intact, normal affect and speech, no focal motor deficits. laboratory and microbiology Laboratory Tests 01/16/25 05:22 Test 01/16/25 05:22 Range/Units Serum Glucose 88 74-106 mg/dL Microbiology Date/Time Source Procedure Growth Status 01/14/25 20:23 Sputum Gram Stain - Final Resulted 01/14/25 20:23 Sputum Respiratory Culture - Preliminary Resulted 01/14/25 18:30 Nose MRSA Screen - Final Complete 01/13/25 20:12 Blood Blood Culture - Preliminary NO GROWTH AFTER 48 HOURS OF INCUBATION. Resulted Problem List/Assessment/Plan Problem List/Assessment/Plan Sepsis due to Multifocal pneumonia gram+/ gram- Acute respiratory failure resolved Ho Hypertension Ho autoimmune disease Ho neuropathic pain Morbid obesity Transaminitis Sinus tachycardia Cardiac diet IV fluids given Zosyn+ vancomycin + doxycycline Enoxaparin SC daily Med nebs Pain management: patient at home was on norco 10, oxycodone: here: oxycodone and ibuprofen hold on tylenol due to transaminitis 01/15/25: wbc is trending high, sputum culture came prelim with Few Gram Negative Rods, Rare Gram Positive Cocci in pairs, AB was changed to doxycicline, transaminitis ALT: AST 2: 1, acute hepatits and liver US ordered 01/16/25: patient had an episode of HR above 160s, ABG was ordered: showing respiratory alkalosis, Aa gradient elevated, Angio CT scan was ordered to rule out PE pending official reading, troponins are negative, ddimer was also negative at admission, prophylactic anticoagulation is started. antibiotics were upgraded Case discussed with Dr Samuel Full code Plan discussed with: Patient, Other (rn) My Orders My Orders Orders - BERYL SOLIS Procedure Category Date Status Time Doxycycline PHA 01/15/25 In Process 100mg/100ml 15:30 Oxycodone Er Tablet PHA 01/15/25 In Process (Oxycontin Er Tablet 18:00 Acute Hepatitis Panel LAB 01/15/25 In Process 18:59 LIVER US 01/15/25 Resulted 18:59 Date of Service: Jan 16, 2025 Billing Provider: SUE SAMUEL MD Common Visit Codes: [id number] INP/OBS CARE(HIGH) BERYL SOLIS RESIDENT Jan 16, 2025 15:31 SUE SAMUEL MD Jan 20, 2025 22:05
[2025-01-16] MEDS: POTASSIUM EFFERVESENT TAB 25 MEQ PO ONE (15:32)
[2025-01-16] MEDS ORDERED: IOHEXOL 350 MG/ML 100ML IJ ONE (16:28)
[2025-01-16] MEDS ORDERED: VANCOMYCIN PER PHARMACY 0 MG IV SCH (16:30)
[2025-01-16 17:06] LABS: Base Excess 1.2 mmol/L (-2.0-3.0)
[2025-01-16] MEDS: PIPERACILLIN-TAZOB 3.375GM 100 ML IV SCH (18:41)
[2025-01-16] MEDS: VANCOMYCIN 750MG KIT 100 ML IV SCH (22:07)
[2025-01-17] VITALS (9 sets, daily range): BP systolic 117–160; BP diastolic 60–86; PULSE 102–124; RESP 17–18; TEMP 97.4–98.1; O2SAT 93–96
--- NOTE | 2025-01-17 01:17 | DVH ---
CTA Chest with intravenous contrast INDICATION: r/o PE COMPARISON: None TECHNIQUE: Multidetector spiral CTA of the chest was performed of the chest with intravenous contrast. PULMONARY ANGIOGRAPHY PROTOCOL was utilized using a bolus- tracking technique centered on the main pulmonary artery. Axial, coronal and sagittal multiplanar and MIP reformats were performed. CONTRAST: Type of contrast: Omni 350 Contrast injected: 100 ml Radiation dose : Chest: CTDI volume is 19.47 mGy. Dose-length product is 731.63 mGy*cm The dose indicators for CT are the volume computed Tomography (CT) dose Index (CTDIvol) and the dose Length product (DLP), and are measured in units of mGy and mGy-cm, respectively. These indicators are not patient dose, but values generated from the CT scanner acquisition factors. The report includes radiation exposure data for exposures received during this examination. Findings: Limited by motion. Pulmonary artery: No large central or large segmental pulmonary embolism. Lower neck: Normal thyroid. Lungs: Patchy tree-in-bud nodularity and ground-glass opacities in the lower lungs. Heart/Vascular Structures: Normal heart size. No pericardial effusion. Lymph Nodes: Mediastinal and hilar lymphadenopathy. Pleura: No pleural effusion or significant pneumothorax. Musculoskeletal: No acute osseous abnormality. Soft tissues: Normal. Upper abdomen: Limited portions of the upper abdomen are unremarkable. IMPRESSION: 1. Limited by motion. No large central pulmonary embolism. 2. Patchy tree-in-bud nodularity and ground-glass opacities in the lower lungs. Mediastinal and hilar lymphadenopathy. Findings suggest an infectious / inflammatory process. Clinical correlation and continued follow-up is recommended. HS:Y ZEJ [place]
[2025-01-17 06:07] LABS: Hematocrit 46.1 % (36.0-46.0)
[2025-01-17 06:10] LABS: Hemoglobin 15.5 g/dL (12.2-16.2); Mean Corpuscular Hemoglobin 28.7 pg (28.0-32.0); Mean Corpuscular Volume 85.1 fL (80.0-100.0); Nucleated Red Blood Cells % 0.1 %
[2025-01-17 06:25] LABS: Albumin 4.0 g/dL (3.2-4.8); Alkaline Phosphatase 68 U/L (46-116); Anion Gap 10 (5-15); BUN/Creatinine Ratio 15.7 (10.0-20.0); Blood Urea Nitrogen 13 mg/dL (9-23); Calcium 9.2 mg/dL (8.7-10.4); Carbon Dioxide 26 mmol/L (20-31); Chloride 103 mmol/L (98-107); Potassium 4.1 mmol/L (3.5-5.1); Sodium 139 mmol/L (136-145); Total Protein 6.9 g/dL (5.7-8.2)
[2025-01-17 06:26] LABS: Bilirubin, Total 0.5 mg/dL (0.2-1.0)
[2025-01-17 06:30] LABS: Alanine Aminotransferase 123 U/L (7-40); Glucose 111 mg/dL (74-106)
[2025-01-17] MEDS: ENOXAPARIN SOD 40 MG/0.4 ML SYRINGE SC SCH (08:54)
[2025-01-17 10:24] LABS: Hepatitis B Surface Antigen Negative (Negative); Hepatitis C Antibody Negative (Negative)
[2025-01-17] MEDS: SODIUM CHLORIDE 0.9% 1,000 ML IV ONE (11:45)
[2025-01-17] MEDS: VANCOMYCIN 750MG KIT 100 ML IV SCH (16:21)
--- NOTE | 2025-01-17 19:09 | DVHPNRES ---
Progress Note Date Seen: Jan 17, 2025 Resident Creating Document: BERYL SOLIS RESIDENT Has the PT tested + for MRSA If YES, has PT been informed?: No Medical Necessity Reason Pt with a Central, PICC or Fol: No Subjective Review of Systems 40-year-old female presents for evaluation of shortness for breath. Patient reports being seen at [facility] two weeks ago and was diagnosed with acute bronchitis. She was sent home with prednisone and Augmentin. She states her symptoms have not resolved. She reports having a productive cough with yellowish phlegm. She reports worsening shortness for breath and unable to take deep breaths. Denies chest pain or palpitations. No other acute complaints reported. Past Medical History Hypertension, autoimmnue disease? , neuropathic pain Past Surgical History Denies Family History Noncontributory Smoke: No ALCOHOL: occassional Drugs: None Lives: with Family 01/14/25: wbc is elevated, HR120- 110, CT scan: Multifocal pneumonia throughout both lungs, most prominent in the left lower lobe and Mediastinal lymphadenopathy, likely reactive, patient was started on ceftriaxone, vancomtycin and azithromycin, vanco is DC, ddimer neg, steroids were dc 01/15/25: wbc is trending high, sputum culture came prelim with Few Gram Negative Rods, Rare Gram Positive Cocci in pairs, AB was changed to doxycicline, transaminitis ALT: AST 2: 1, acute hepatits and liver US ordered 01/16/25: patient had an episode of HR above 160s, ABG was ordered: showing respiratory alkalosis, Aa gradient elevated, Angio CT scan was ordered to rule out PE pending official reading, troponins are negative, ddimer was also negative at admission, prophylactic anticoagulation is started. 01/17/25: CT scan negative for PE, Patchy tree-in-bud nodularity and ground- glass opacities in the lower lungs. Mediastinal and hilar lymphadenopathy, we were not able to wean O2, keep o2 above 97% Objective vital signs Vital Sign Date Time Temp Pulse Resp B/P (MAP) Pulse Ox O2 Delivery O2 Flow Rate FiO2 01/17/25 17:00 98.1 118 18 119/82 (94) 95 98.1 01/17/25 10:00 Nasal Cannula 2.0 01/17/25 10:00 28 Total Intake and Output 01/16/25 01/16/25 01/17/25 15:00 23:00 07:00 Intake Total 50 ml 1060 ml 735 ml Balance 50 ml 1060 ml 735 ml medications Current Medications Medications Dose Ordered Sig/Jazmin Route Start Time Stop Time Status Last Admin Dose Admin Amlodipine Besylate 10 mg DAILY PO 01/14/25 10:00 01/17/25 08:53 10 MG Acetaminophen 650 mg Q6HP PRN PO 01/13/25 20:00 Ibuprofen 400 mg Q8HP PRN PO 01/14/25 16:45 01/17/25 08:53 400 MG Doxycycline Hyclate 100 ml @ 50 mls/hr Q12H IV 01/15/25 15:30 01/17/25 15:55 50 MLS/HR Oxycodone HCl 5 mg Q6HPRN PO 01/15/25 18:00 01/17/25 18:00 5 MG Piperacillin Sod/ Tazobactam Sod 100 ml @ 25 mls/hr Q6HR IV 01/16/25 18:00 01/17/25 18:18 25 MLS/HR Vancomycin HCl 0 ml @ 0 mls/hr UD IV 01/16/25 16:30 Enoxaparin Sodium 40 mg DAILY SC 01/17/25 10:00 01/17/25 08:54 40 MG Vancomycin HCl 100 ml @ 100 mls/hr Q8H IV 01/17/25 16:00 01/17/25 16:21 100 MLS/HR Examination Gen: 40-year-old female in mild distress, morbidly obese Skin: Warm, dry, normal color and texture, no rash. HEENT: Normocephalic atraumatic, mucous membranes moist and pink. Neck: Cervical and supraclavicular nodes normal without enlargement, trachea is midline, thyroid gland is normal without masses. Pulmonary: Diminished breath sounds bilaterally Cardiac: Sinus tachycardia Abdomen: Soft, nontender, nondistended, bowel sounds present all 4 quadrants, no guarding, no rigidity, no organomegaly. Extremities: No cyanosis, clubbing, no edema Neuro: Cranial nerves II through XII grossly intact, normal affect and speech, no focal motor deficits. laboratory and microbiology Laboratory Tests 01/17/25 05:28 Test 01/17/25 05:28 Range/Units Serum Glucose 111 H 74-106 mg/dL Microbiology Date/Time Source Procedure Growth Status 01/16/25 18:00 Sputum Expectorated Sputum Gram Stain Pending Resulted 01/16/25 18:00 Sputum Expectorated Sputum Respiratory Culture - Preliminary Resulted 01/14/25 18:30 Nose MRSA Screen - Final Complete 01/13/25 20:12 Blood Blood Culture - Preliminary NO GROWTH AFTER 72 HOURS OF INCUBATION. Resulted Problem List/Assessment/Plan Problem List/Assessment/Plan Sepsis due to Multifocal pneumonia gram+/ gram- Acute respiratory failure resolved Ho Hypertension Ho autoimmune disease Ho neuropathic pain Morbid obesity Transaminitis Sinus tachycardia Cardiac diet IV fluids given Zosyn+ vancomycin + doxycycline Enoxaparin SC daily Med nebs Pain management: patient at home was on norco 10, oxycodone: here: oxycodone and ibuprofen hold on tylenol due to transaminitis 01/15/25: wbc is trending high, sputum culture came prelim with Few Gram Negative Rods, Rare Gram Positive Cocci in pairs, AB was changed to doxycicline, transaminitis ALT: AST 2: 1, acute hepatits and liver US ordered 01/16/25: patient had an episode of HR above 160s, ABG was ordered: showing respiratory alkalosis, Aa gradient elevated, Angio CT scan was ordered to rule out PE pending official reading, troponins are negative, ddimer was also negative at admission, prophylactic anticoagulation is started. antibiotics were upgraded 01/17/25: CT scan negative for PE, Patchy tree-in-bud nodularity and ground- glass opacities in the lower lungs. Mediastinal and hilar lymphadenopathy, we were not able to wean O2, keep o2 above 97% Case discussed with Dr Samuel Full code Plan discussed with: Patient, Other (rn) My Orders My Orders Orders - BERYL SOLIS RESIDENT Procedure Category Date Status Time Enoxaparin Sodium PHA 01/17/25 In Process (Lovenox) 10:00 Vancomycin 750mg Kit PHA 01/17/25 In Process (Vancomycin Hcl) 16:00 Vancomycin Per [facility] 01/18/25 In Process Pharmacy Protoc 08:00 Creatinine LAB 01/18/25 Verified 07:00 Communication Order ORDERS 01/17/25 Transmitted 16:15 Date of Service: Jan 17, 2025 Billing Provider: SUE SAMUEL MD Common Visit Codes: [id number] INP/OBS CARE(HIGH) BERYL SOLIS RESIDENT Jan 17, 2025 19:09 SUE SAMUEL MD Jan 20, 2025 22:19
[2025-01-18] VITALS (8 sets, daily range): BP systolic 132–139; BP diastolic 74–94; PULSE 70–133; RESP 18–19; TEMP 97.1–98; O2SAT 94–98
--- NOTE | 2025-01-18 04:44 | DVH ---
CHEST RADIOGRAPH Indication: pneumonia Technique: Single frontal view of the chest was obtained COMPARISON: XY CHEST PORTABLE on DOS: 01/13/25 FINDINGS: Lines and Tubes: None Lungs: Clear Pleura: No effusion. No pneumothorax. Cardiomediastinal contours: Unremarkable Bones: Unremarkable IMPRESSION: 1. No acute disease.
[2025-01-18 05:46] LABS: Hematocrit 42.5 % (36.0-46.0); Hemoglobin 14.9 g/dL (12.2-16.2); Mean Corpuscular Hemoglobin 30.2 pg (28.0-32.0); Mean Corpuscular Volume 86.4 fL (80.0-100.0); Nucleated Red Blood Cells % 0.0 %
[2025-01-18 06:13] LABS: Albumin 4.0 g/dL (3.2-4.8); Alkaline Phosphatase 59 U/L (46-116); Anion Gap 10 (5-15); BUN/Creatinine Ratio 15.6 (10.0-20.0); Blood Urea Nitrogen 12 mg/dL (9-23); Calcium 9.6 mg/dL (8.7-10.4); Carbon Dioxide 27 mmol/L (20-31); Chloride 105 mmol/L (98-107); Glucose 92 mg/dL (74-106); Potassium 4.1 mmol/L (3.5-5.1); Sodium 142 mmol/L (136-145); Total Protein 6.6 g/dL (5.7-8.2)
[2025-01-18 06:14] LABS: Bilirubin, Total 0.6 mg/dL (0.2-1.0)
[2025-01-18 06:23] LABS: Alanine Aminotransferase 74 U/L (7-40)
[2025-01-18 08:04] LABS: Base Excess 1.4 mmol/L (-2.0-3.0)
--- NOTE | 2025-01-18 11:10 | ECG ---
[facility] Test Date: 2025-01-16 Test Time: 13:19:02 Pat Name: NICOLE TERAN Department: Room: 0215T B Gender: F Head Mechanic: LASHAE : 1985 Requested By: BERYL ZHOU Order Number: [id number] Reading MD: Amos Asencio Measurements Intervals [place] Rate: 121 P: 65 GA: 134 QRS: 77 QRSD: 81 T: 40 QT: 296 QTc: 420 Interpretive Statements Sinus tachycardia Probable left atrial enlargement Electronically Signed On 01-18-2025 20:20:57 PDT by Amos Asencio Please click the below link to view image of tracing.
--- NOTE | 2025-01-18 11:10 | ECG ---
[facility] Test Date: 2025-01-16 Test Time: 13:17:49 Pat Name: NICOLE TERAN Department: Room: 0215T B Gender: F Motion Picture Photographer: LASHAE : 1985 Requested By: BERYL ZHOU Order Number: [id number] Reading MD: Amos Asencio Measurements Intervals [place] Rate: 124 P: 66 MA: 132 QRS: 82 QRSD: 82 T: 42 QT: 299 QTc: 430 Interpretive Statements Sinus tachycardia Probable left atrial enlargement Abnormal R-wave progression, late transition Electronically Signed On 01-18-2025 20:20:56 PDT by Amso Asencio Please click the below link to view image of tracing.
--- NOTE | 2025-01-18 13:30 | DVHPNRES ---
Progress Note Date Seen: Jan 18, 2025 Resident Creating Document: BERYL SOLIS RESIDENT Has the PT tested + for MRSA If YES, has PT been informed?: No Medical Necessity Reason Pt with a Central, PICC or Fol: No Subjective Review of Systems 40-year-old female presents for evaluation of shortness for breath. Patient reports being seen at [facility] two weeks ago and was diagnosed with acute bronchitis. She was sent home with prednisone and Augmentin. She states her symptoms have not resolved. She reports having a productive cough with yellowish phlegm. She reports worsening shortness for breath and unable to take deep breaths. Denies chest pain or palpitations. No other acute complaints reported. Past Medical History Hypertension, autoimmune disease? , neuropathic pain Past Surgical History Denies Family History Noncontributory Smoke: No ALCOHOL: occasional Drugs: None Lives: with Family 01/14/25: WBCs elevated, HR120- 110, CT scan: Multifocal pneumonia throughout both lungs, most prominent in the left lower lobe and Mediastinal lymphadenopathy, likely reactive, patient was started on ceftriaxone, vancomycin and azithromycin, d-dimer neg, steroids were dc 01/15/25: WBCs trending high, sputum culture came prelim with Few Gram Negative Rods, Rare Gram Positive Cocci in pairs, AB was changed to doxycycline, transaminitis ALT: AST 2: 1, acute hepatitis and liver US ordered 01/16/25: patient had an episode of HR above 160s, ABGs ordered: showing respiratory alkalosis, AA gradient elevated, Angio CT scan was ordered to rule out PE pending official reading, troponins are negative, d-dimer was also negative at admission, prophylactic anticoagulation is started. 01/17/25: CT scan negative for PE, Patchy tree-in-bud nodularity and ground- glass opacities in the lower lungs. Mediastinal and hilar lymphadenopathy, we were not able to wean O2, keep o2 above 97% 01/18/25: HR improves, yeast is growing in the sputum, fluconazole was added to the regimen, liver function is normal, Poston restarted, ABGs improved with O2 4 L/min Objective vital signs Vital Sign Date Time Temp Pulse Resp B/P (MAP) Pulse Ox O2 Delivery O2 Flow Rate FiO2 01/18/25 13:00 97.6 106 19 137/86 (103) 94 97.6 01/18/25 10:00 Nasal Cannula 4.0 01/18/25 10:00 36 Total Intake and Output 01/17/25 01/17/25 01/18/25 15:00 23:00 07:00 Intake Total 1100 ml 900 ml 1000 ml Balance 1100 ml 900 ml 1000 ml medications Current Medications Medications Dose Ordered Sig/Jazmin Route Start Time Stop Time Status Last Admin Dose Admin Amlodipine Besylate 10 mg DAILY PO 01/14/25 10:00 01/18/25 09:05 10 MG Acetaminophen 650 mg Q6HP PRN PO 01/13/25 20:00 Ibuprofen 400 mg Q8HP PRN PO 01/14/25 16:45 01/18/25 04:33 400 MG Doxycycline Hyclate 100 ml @ 50 mls/hr Q12H IV 01/15/25 15:30 01/18/25 04:52 50 MLS/HR Piperacillin Sod/ Tazobactam Sod 100 ml @ 25 mls/hr Q6HR IV 01/16/25 18:00 01/18/25 12:21 25 MLS/HR Vancomycin HCl 0 ml @ 0 mls/hr UD IV 01/16/25 16:30 Enoxaparin Sodium 40 mg DAILY SC 01/17/25 10:00 01/18/25 09:05 40 MG Vancomycin HCl 100 ml @ 100 mls/hr Q8H IV 01/17/25 16:00 01/18/25 09:04 100 MLS/HR Acetaminophen/ Hydrocodone Bitart 1 tab Q6HP PRN PO 01/18/25 12:30 Fluconazole 100 ml @ 100 mls/hr Q1HR IV 01/18/25 14:00 01/18/25 15:59 UNV Examination Gen: 40-year-old female in mild distress, morbidly obese Skin: Warm, dry, normal color and texture, no rash. HEENT: Normocephalic atraumatic, mucous membranes moist and pink. Neck: Cervical and supraclavicular nodes normal without enlargement, trachea is midline, thyroid gland is normal without masses. Pulmonary: Diminished breath sounds bilaterally Cardiac: Sinus tachycardia Abdomen: Soft, nontender, nondistended, bowel sounds present all 4 quadrants, no guarding, no rigidity, no organomegaly. Extremities: No cyanosis, clubbing, no edema Neuro: Cranial nerves II through XII grossly intact, normal affect and speech, no focal motor deficits. laboratory and microbiology Laboratory Tests 01/18/25 04:27 Test 01/18/25 04:27 Range/Units Serum Glucose 92 74-106 mg/dL Microbiology Date/Time Source Procedure Growth Status 01/16/25 18:00 Sputum Expectorated Sputum Gram Stain - Final Resulted 01/16/25 18:00 Sputum Expectorated Sputum Respiratory Culture - Preliminary Resulted 01/14/25 18:30 Nose MRSA Screen - Final Complete 01/13/25 20:12 Blood Blood Culture - Preliminary NO GROWTH AFTER 72 HOURS OF INCUBATION. Resulted Labs and/or images reviewed: Labs reviewed by me, Image(s) reviewed by me Problem List/Assessment/Plan Problem List/Assessment/Plan Sepsis due to Multifocal pneumonia gram+/ gram-/ possible yeast infection Acute respiratory failure resolved Hypertension Autoimmune disease Neuropathic pain Morbid obesity Transaminitis Sinus tachycardia Cardiac diet IV fluids given Zosyn+ vancomycin + doxycycline+ fluconazole Enoxaparin SC daily Med nebs Poston restarted O2 4L/min Goals of care discussed with the patient for 20 minutes; full code Case discussed with Dr Marion Plan discussed with: Patient, Other (RN) My Orders My Orders Orders - BERYL SOLIS Procedure Category Date Status Time Vancomycin 750mg Kit PHA 01/17/25 In Process (Vancomycin Hcl) 16:00 Vancomycin Per [facility] 01/18/25 In Process Pharmacy Protoc 08:00 Communication Order ORDERS 01/17/25 Transmitted 16:15 Chest Xray 1 View XY 01/18/25 Resulted 04:00 Abg W/ Co-Ox RT 01/18/25 Logged 04:00 Vancomycin,Trough LAB 01/18/25 Logged 15:00 Vancomycin Per [facility] 01/18/25 In Process Pharmacy Protoc 16:00 Hydrocodone-Acet PHA 01/18/25 In Process 10/325mg Tab ([place] 12:30 Fluconazole PHA 01/18/25 Logged 200mg/100ml (Diflucan 14:00 Dietary Evaluation Review Comments: 1) Continue cardiac diet. Encourage optimal PO intake 2) Refer to outpatient RD for weight management 3) Follow-up with cardiology and pulmonology 4) Continue to monitor I&O, labs, and skin integrity Expected Outcomes/Goals: 1) appetite and labs to improve 2) gradual wt loss 3) f/u in 3-5 days Addendum Addendum Addendum I was physically present for the maciel portions of the service provided to patient by THE RESIDENT. I have reviewed the documentation, discussed the case with resident and agree with the resident's documentation except as noted. Also the patient's clinical case was discussed with the patient's nurse. This medical document was created using an electronic medical record system with computerized dictation system. Although this document has been carefully reviewed, there might still be some phonetic and typographical errors. These areas are purely typographical due to imperfections of the software programs, and do not reflect any compromise in the patient's medical care. Late signature. Date of Service: Jan 18, 2025 Billing Provider: RAFA MARION MD Common Visit Codes: [id number] INP/OBS CARE(HIGH) Secondary Visit Codes: [id number] CARE PLAN 30 MINUTES (20 minutes) BERYL SOLIS RESIDENT Jan 18, 2025 13:30 RAFA MARION MD Jan 20, 2025 05:31
[2025-01-18] MEDS: HYDROcodone-ACET 10/325MG TAB PO PRN (14:52)
[2025-01-18] MEDS: FLUCONAZOLE 200MG/100ML 100 ML IV SCH (14:54)
--- NOTE | 2025-01-18 21:42 | ECG ---
[facility] Test Date: 2025-01-18 Test Time: 21:40:59 Pat Name: NICOLE TERAN Department: Room: 0215T B Gender: F Environmental Coordinator: : 1985 Requested By: RAFA MARION Order Number: [id number] Reading MD: Amos Asencio Measurements Intervals [place] Rate: 104 P: 39 OR: 143 QRS: 65 QRSD: 80 T: 36 QT: 328 QTc: 432 Interpretive Statements Sinus tachycardia Borderline low voltage, extremity leads Electronically Signed On 01-24-2025 9:30:56 PDT by Amos Asencio Please click the below link to view image of tracing.
[2025-01-18] MEDS ORDERED: VANCOMYCIN 1GM/200ML PM 200 ML IV ONE (23:43)
[2025-01-18] MEDS: VANCOMYCIN 1GM/250ML KIT 250 ML IV SCH (23:49)
--- NOTE | 2025-01-18 23:59 | DVHINCON2 ---
Date of service: Jan 18, 2025 Referring Physician Rex Reason for Consultation Tachycardia History of Present Illness This is a 40 year old female without any significant medical history presented to the ED on 01/13 with complaints of SOB. Patient states that she has been sick since the 03 of January, and went to [facility] and was diagnosed with Bronchitis. Patient states that her SOB has not improved and has a worsening factor when walking and coughing. TSH is within normal range. WBC 15.7. UA was negative. Troponin negative x3. Chest x-ray showed NAD. CT chest showed multifocal pneumonia throughout both lungs, most prominent in the left lower lobe. Mediastinal lymphadenopathy, likely reactive. Liver US is unremarkable. CTA chset is negative for PE. There is patchy tree-in-bud nodul arity and ground-glass opacities in the lower lungs. Mediastinal and hilar lymphadenopathy. Patient was admitted to the hospital. Patient developed tachycardia on the nuclear monitoring technician therefore I was asked to consult on this patient. Family History: Hypertension G8 MOTHER G8 FATHER Allergies: Coded Allergies: Codeine (Verified Allergy, Mild, 01/13/25) UPSET STOMACH PER PT Niacin (Verified Allergy, Unknown, 01/13/25) Home Meds Reported Medications Amlodipine Besylate (Amlodipine Besylate) 5 Mg Tab, 10 MG PO DAILY for 30 Days, MG 01/14/25 Hydrocodone-Acetaminophen (Hydrocodone/Acetaminophen 10-325 mg) 1 Tab Tab, 1 TAB PO QIDPRN, TAB 01/14/25 Oxycodone Hcl (OXYCODONE HCL) 5 Mg Tb, 2.5 MG PO, TAB 01/14/25 Docusate Sodium (Docusate Sodium) 100 Mg Cap, 100 MG PO BID, CAP 01/14/25 Current Medications Current Medications Medications (Trade) Dose Ordered Sig/Jazmin Route PRN Reason Start Time Stop Time Status Last Admin Acetaminophen/ Hydrocodone Bitart ([place] 10/325MG Tab) 1 tab Q6HP PRN PO SEVERE PAIN (7-10 PAIN SCALE) 01/18/25 12:30 01/18/25 14:52 Fluconazole 100 ml @ 100 mls/hr Q1HR IV 01/18/25 14:00 01/18/25 15:59 DC 01/18/25 16:03 Vancomycin HCl 250 ml @ 250 mls/hr Q8H IV 01/19/25 00:00 Review of Systems Constitutional: denies: chills, diaphoresis, fatigue, fever, malaise, sweats, weakness, others EENTM: denies: blurred vision, double vision, ear bleeding, ear discharge, ear drainage, ear pain, ear ringing, eye pain, eye redness, hearing loss, mouth pain, mouth swelling, nasal discharge, nose bleeding, nose congestion, nose pain, photophobia, tearing, throat pain, throat swelling, voice changes, others Respiratory: reports: SOB at rest, shortness of breath, SOB with excertion; denies: cough, hemoptysis, orthopnea, stridor, wheezing, others Cardiovascular: denies: chest pain, dizzy spells, diaphoresis, Dyspnea on exertion, edema, irregular heart beat, left arm pain, lightheadedness, palpitations, PND, syncope, others Gastrointestinal: denies: abdomen distended, abdominal pain, blood streaked bowels, constipated, diarrhea, dysphagia, difficulty swallowing, hematemesis, melena, nausea, poor appetite, poor fluid intake, rectal bleeding, rectal pain, vomiting, others Genitourinary: denies: abnormal vagina bleeding, burning, dyspareunia, dysuria, flank pain, frequency, hematuria, incontinence, pain, , vagina discharge, urgency, others Neurological: denies: dizziness, fainting, headache, left sided numbness, left sided weakness, numbness, paresthesia, pre-existing deficit, right sided numbness, right sided weakness, seizure, speech problems, tingling, tremors, wea kness, others Musculoskeletal: denies: back pain, gout, joint pain, joint swelling, muscle pain, muscle stiffness, neck pain, others Integumetry: denies: bruises, change in color, change in hair/nails, dryness, l aceration, lesions, lumps, rash, wounds, others Allergic/Immunocompromised: denies: Difficulty Healing, Frequent Infections, Hives, Itching, others Hematologic/Lymphatic: denies: anemia, blood clots, easy bleeding, easy bruising, swollen glands, others Endocrine: denies: excessive hunger, excessive sweating, excessive thirst, excessive urination, flushing, intolerance to cold, intolerance to heat, unexplained weight gain, unexplained weight loss, others Psychiatric: denies: anxiety, bipolar disorder, depression, hopeless, panic disorder, schizophrenia, sleepless, suicidal, others All Other Systems: Reviewed and Negative Vital Signs Vital Signs Date Time Temp Pulse Resp B/P (MAP) Pulse Ox O2 Delivery O2 Flow Rate FiO2 01/18/25 13:00 97.6 106 19 137/86 (103) 94 97.6 01/18/25 10:00 Nasal Cannula 4.0 01/18/25 10:00 36 Physical Exam GENERAL: Alert and oriented x 3. No acute distress. Obesity. EYES: PERRL, EOMI. Anicteric. HENT: Moist mucous membranes. LUNGS: Clear to auscultation bilaterally. CARDIOVASCULAR: Regular rate and rhythm. ABDOMEN: Soft, nontender and nondistended. EXTREMITIES: No edema. NEUROLOGIC: No focal neurological deficits. SKIN: Warm, dry. Labs/Diagnostic Data Labs Test 01/18/25 15:10 01/18/25 07:58 01/18/25 04:27 01/16/25 05:22 Range/Units Troponin I High Sensitivity < 3 L </=34 ng/L Vancomycin Level Trough 7.7 5-10 ug/mL Blood Gas Specimen Type Arterial Blood Gas Sample Site Right radial Blood Gas Patient Temperature 37.0 Arterial Blood Date Drawn [id number] Arterial Blood pH 7.433 7.350-7.450 Arterial Blood Partial Pressure CO2 39.1 32.0-45.0 mmHg Arterial Blood Partial Pressure O2 86.2 83.0-108.0 mmHg Arterial Blood HCO3 25.5 21.0-28.0 mmol/L Arterial Blood Oxygen Saturation 95.9 94.0-98.0 % Arterial Blood Base Excess 1.4 -2.0-3.0 mmol/L Arterial Blood Oxyhemoglobin 94.7 94.0-98.0 % Arterial Blood Carboxyhemoglobin 0.9 0.5-1.5 % Arterial Blood Methemoglobin 0.4 0.0-1.5 % Augustus Test Yes Blood Gas Total Hemoglobin 15.10 12.0-16.0 g/dL Blood Gas Liter Flow 4.00 Blood Gas Modality Nasal cannula FiO2 % 36.0 White Blood Count 10.4 4.4-10.8 10^3/uL Red Blood Count 4.92 4.0-5.20 10^6/uL Hemoglobin 14.9 12.2-16.2 g/dL Hematocrit 42.5 36.0-46.0 % Mean Corpuscular Volume 86.4 80.0-100.0 fL Mean Corpuscular Hemoglobin 30.2 28.0-32.0 pg Mean Corpuscular Hemoglobin Concent 34.9 32.0-36.0 g/dL Red Cell Distribution Width 13.4 11.8-14.3 % Platelet Count 551 H 140-450 10^3/uL Mean Platelet Volume 6.2 L 6.9-10.8 fL Neutrophils (%) (Auto) 63.5 37.0-80.0 % Lymphocytes (%) (Auto) 25.3 10.0-50.0 % Monocytes (%) (Auto) 7.8 0.0-12.0 % Eosinophils (%) (Auto) 2.9 0.0-7.0 % Basophils (%) (Auto) 0.5 0.0-2.0 % Neutrophils # (Auto) 6.6 1.6-8.6 10 ^3/uL Lymphocytes # (Auto) 2.6 0.4-5.4 10 ^3/uL Monocytes # (Auto) 0.8 0-1.3 10 ^3/uL Eosinophils # (Auto) 0.3 0-0.8 10 ^3/uL Basophils # (Auto) 0.1 0-0.2 10 ^3/uL Nucleated Red Blood Cells 0.0 % Sodium Level 142 136-145 mmol/L Potassium Level 4.1 3.5-5.1 mmol/L Chloride Level 105 98-107 mmol/L Carbon Dioxide Level 27 20-31 mmol/L Anion Gap 10 5-15 Blood Urea Nitrogen 12 9-23 mg/dL Creatinine 0.77 0.550-1.02 mg/dL Glomerular Filtration Rate Calc 100 >90 mL/min BUN/Creatinine Ratio 15.6 10.0-20.0 Serum Glucose 92 74-106 mg/dL Calcium Level 9.6 8.7-10.4 mg/dL Total Bilirubin 0.6 0.2-1.0 mg/dL Aspartate Amino Transferase (AST) 20 <34 U/L Alanine Aminotransferase (ALT) 74 H 7-40 U/L Alkaline Phosphatase 59 46-116 U/L Total Protein 6.6 5.7-8.2 g/dL Albumin 4.0 3.2-4.8 g/dL Hemoglobin A1c 5.6 <5.7 % A1C Test 01/15/25 05:55 01/14/25 01:00 01/13/25 22:12 01/13/25 17:00 Range/Units Hepatitis A IgM Antibody Negative Hepatitis B Surface Antigen Negative Negative Hepatitis B Core IgM Antibody Negative Negative Hepatitis C Antibody Negative Negative Influenza Type A Antigen Negative Negative Influenza Type B Antigen Negative Negative SARS-CoV-2 Antigen (Rapid) Negative NEGATIVE Lactic Acid Level 5.8 *H 0.4-2.0 mmol/L Urine Color Light-yellow Yellow Urine Clarity Turbid H Clear Urine pH 6.5 5.0-9.0 Urine Specific [place] 1.008 1.001-1.035 Urine Protein Negative Negative Urine Ketones 1+ H Negative Urine Blood 2+ H Negative /uL Urine Nitrite Negative Negative Urine Bilirubin Negative Negative Urine Urobilinogen Normal Negative mg/dL Urine Leukocyte Esterase Trace Negative /uL Urine RBC 3 0 - 4 /hpf Urine Microscopic WBC 1 0-5 /HPF Urine Squamous Epithelial Cells Mod <5 /hpf Urine Bacteria Few H None Seen /hpf Urine Glucose Normal Normal mg/dL Urine Opiates Screen Pos NEGATIVE Urine Fentanyl Screen Neg NEGATIVE Urine Barbiturates Screen Neg NEGATIVE Urine Phencyclidine Screen Neg NEGATIVE Urine Amphetamines Screen Neg NEGATIVE Urine Benzodiazepines Screen Neg NEGATIVE Urine Cocaine Screen Neg NEGATIVE Urine Cannabinoids Screen Neg NEGATIVE Test 01/13/25 16:40 Range/Units D-Dimer, Quantitative 0.29 0.0-0.49 mg/L FEU B-Type Natriuretic Peptide 5.01 0-100 pg/mL Thyroid Stimulating Hormone (TSH) 0.89 0.55-4.78 uIU/mL Microbiology Date/Time Source Procedure Growth Status 01/16/25 18:00 Sputum Expectorated Sputum Gram Stain - Final Resulted 01/16/25 18:00 Sputum Expectorated Sputum Respiratory Culture - Preliminary Resulted 01/14/25 18:30 Nose MRSA Screen - Final Complete 01/13/25 20:12 Blood Blood Culture - Final NO GROWTH AFTER 5 DAYS OF INCUBATION. Complete Assessment Sepsis due to multifocal pneumonia. Acute respiratory failure. Hypertension. Autoimmune disease. Morbid obesity. Transaminitis. Sinus tachycardia. Plan/Recommendation I agree with your ongoing assessment and care of plan. Telemetry reviewed. Echocardiogram. [place] for pain management. Amlodipine. IV antibiotics as ordered. DVT prophylactics. Additional plan as per the hospital course. A total of 45 minutes was spent reviewing the patient record, examining the patient, making a diagnostic and therapeutic plan, discussing this plan with medical personnel, following up on diagnostic studies and following the patient for clinical stability excluding any and all procedures. At least 50% of this time was spent in direct, [id number] contact. Plan discussed with: Patient JOE FLAHERTY MD Jan 18, 2025 21:09
[2025-01-19] VITALS (8 sets, daily range): BP systolic 122–148; BP diastolic 77–85; PULSE 93–118; RESP 17–19; TEMP 97.2–98.1; O2SAT 95–99
[2025-01-19 06:46] LABS: Mean Corpuscular Hemoglobin 30.0 pg (28.0-32.0); Nucleated Red Blood Cells % 0.0 %
[2025-01-19 06:50] LABS: Albumin 4.3 g/dL (3.2-4.8); Alkaline Phosphatase 63 U/L (46-116); Anion Gap 11 (5-15); BUN/Creatinine Ratio 12.5 (10.0-20.0); Bilirubin, Total 0.8 mg/dL (0.2-1.0); Calcium 9.8 mg/dL (8.7-10.4); Carbon Dioxide 24 mmol/L (20-31); Chloride 105 mmol/L (98-107); Glucose 85 mg/dL (74-106); Potassium 4.2 mmol/L (3.5-5.1); Sodium 140 mmol/L (136-145); Total Protein 7.1 g/dL (5.7-8.2)
[2025-01-19 06:53] LABS: Alanine Aminotransferase 64 U/L (7-40); Blood Urea Nitrogen 9 mg/dL (9-23)
[2025-01-19 06:54] LABS: Hematocrit 45.2 % (36.0-46.0); Hemoglobin 15.4 g/dL (12.2-16.2); Mean Corpuscular Volume 88.3 fL (80.0-100.0)
[2025-01-19] MEDS: VANCOMYCIN 1GM/200ML PM 200 ML IV ONE ×2 (09:28→16:41)
[2025-01-19] MEDS: HYDROcodone-ACET 10/325MG TAB PO PRN (11:30)
--- NOTE | 2025-01-19 12:07 | DVHPNRES ---
Progress Note Has the PT tested + for MRSA If YES, has PT been informed?: No Medical Necessity Reason Pt with a Central, PICC or Fol: No Objective vital signs Vital Sign Date Time Temp Pulse Resp B/P (MAP) Pulse Ox O2 Delivery O2 Flow Rate FiO2 01/19/25 09:27 122/77 01/19/25 09:00 98.1 103 19 96 98.1 01/19/25 08:00 Nasal Cannula* 4 36 Total Intake and Output 01/18/25 01/18/25 01/19/25 15:00 23:00 07:00 Intake Total 200 ml 1000 ml 1150 ml Balance 200 ml 1000 ml 1150 ml medications Current Medications Medications Dose Ordered Sig/Jazmin Route Start Time Stop Time Status Last Admin Dose Admin Amlodipine Besylate 10 mg DAILY PO 01/14/25 10:00 01/19/25 09:27 10 MG Ibuprofen 400 mg Q8HP PRN PO 01/14/25 16:45 01/19/25 09:39 400 MG Doxycycline Hyclate 100 ml @ 50 mls/hr Q12H IV 01/15/25 15:30 01/19/25 04:29 50 MLS/HR Piperacillin Sod/ Tazobactam Sod 100 ml @ 25 mls/hr Q6HR IV 01/16/25 18:00 01/19/25 11:30 25 MLS/HR Vancomycin HCl 0 ml @ 0 mls/hr UD IV 01/16/25 16:30 Enoxaparin Sodium 40 mg DAILY SC 01/17/25 10:00 01/19/25 09:27 40 MG Vancomycin HCl 250 ml @ 250 mls/hr Q8H IV 01/19/25 00:00 01/19/25 09:25 250 MLS/HR Acetaminophen/ Hydrocodone Bitart 1 tab Q4HPRN PRN PO 01/19/25 11:15 01/19/25 11:30 1 TAB laboratory and microbiology Laboratory Tests 01/19/25 04:45 Test 01/19/25 04:45 Range/Units Serum Glucose 85 74-106 mg/dL Microbiology Date/Time Source Procedure Growth Status 01/16/25 18:00 Sputum Expectorated Sputum Gram Stain - Final Resulted 01/16/25 18:00 Sputum Expectorated Sputum Respiratory Culture - Preliminary Resulted 01/14/25 18:30 Nose MRSA Screen - Final Complete 01/13/25 20:12 Blood Blood Culture - Final NO GROWTH AFTER 5 DAYS OF INCUBATION. Complete My Orders My Orders Orders - GABRIELLA AGOSTO Procedure Category Date Status Time Hydrocodone-Acet PHA 01/19/25 In Process 10/325mg Tab ([place] 11:15 Dietary Evaluation Review Comments: 1) Continue cardiac diet. Encourage optimal PO intake 2) Refer to outpatient RD for weight management 3) Follow-up with cardiology and pulmonology 4) Continue to monitor I&O, labs, and skin integrity Expected Outcomes/Goals: 1) appetite and labs to improve 2) gradual wt loss 3) f/u in 3-5 days GABRIELLA AGOSTO RESDIENT Jan 19, 2025 12:07
--- NOTE | 2025-01-19 13:50 | DVHPNRES ---
Progress Note Date Seen: Jan 19, 2025 Resident Creating Document: GABRIELLA AGOSTO JOHANN Has the PT tested + for MRSA If YES, has PT been informed?: No Medical Necessity Reason Pt with a Central, PICC or Fol: No Subjective Review of Systems Patient seen and examined at bedside due to with the patient is feeling better since admission. But still complained of shortness of breaths, cough with sputum. Patient reports: No new complaints, Feels better Changes from previous H/P or p: Changes Objective vital signs Vital Sign Date Time Temp Pulse Resp B/P (MAP) Pulse Ox O2 Delivery O2 Flow Rate FiO2 01/19/25 13:18 97.7 106 17 135/85 (102) 97 97.7 01/19/25 08:00 Nasal Cannula* 4 36 Total Intake and Output 01/18/25 01/18/25 01/19/25 15:00 23:00 07:00 Intake Total 200 ml 1000 ml 1150 ml Balance 200 ml 1000 ml 1150 ml medications Current Medications Medications Dose Ordered Sig/Jazmin Route Start Time Stop Time Status Last Admin Dose Admin Amlodipine Besylate 10 mg DAILY PO 01/14/25 10:00 01/19/25 09:27 10 MG Ibuprofen 400 mg Q8HP PRN PO 01/14/25 16:45 01/19/25 09:39 400 MG Doxycycline Hyclate 100 ml @ 50 mls/hr Q12H IV 01/15/25 15:30 01/19/25 04:29 50 MLS/HR Piperacillin Sod/ Tazobactam Sod 100 ml @ 25 mls/hr Q6HR IV 01/16/25 18:00 01/19/25 11:30 25 MLS/HR Vancomycin HCl 0 ml @ 0 mls/hr UD IV 01/16/25 16:30 Enoxaparin Sodium 40 mg DAILY SC 01/17/25 10:00 01/19/25 09:27 40 MG Vancomycin HCl 250 ml @ 250 mls/hr Q8H IV 01/19/25 00:00 01/19/25 09:25 250 MLS/HR Acetaminophen/ Hydrocodone Bitart 1 tab Q4HPRN PRN PO 01/19/25 11:15 01/19/25 11:30 1 TAB Examination General Appearance: Alert, Oriented X3, Cooperative, No acute distress HEENT: Atraumatic, PERRLA, EOMI, Mucous membrane moist/pink Respiratory: Bilateral crackles Cardiovascular: Regular rate, Normal S1, Normal S2, No murmurs, no chest wall tenderness Abdominal: Normal bowel sounds, Soft, No tenderness, No hepatosplenomegaly, No masses Extremities: No clubbing, No cyanosis, No edema, Normal pulses, No tenderness/swelling Skin: No rashes, No breakdown, No significant lesion Neuro: Normal gait, Normal speech, Strength at 5/5 X4 ext, Normal tone, Sensation intact, Cranial nerves 3-12 NL, Reflexes 2+ Psych/Mental Status: Mental status NL, Mood NL laboratory and microbiology Laboratory Tests 01/19/25 04:45 Test 01/19/25 04:45 Range/Units Serum Glucose 85 74-106 mg/dL Microbiology Date/Time Source Procedure Growth Status 01/16/25 18:00 Sputum Expectorated Sputum Gram Stain - Final Resulted 01/16/25 18:00 Sputum Expectorated Sputum Respiratory Culture - Preliminary Resulted 01/14/25 18:30 Nose MRSA Screen - Final Complete 01/13/25 20:12 Blood Blood Culture - Final NO GROWTH AFTER 5 DAYS OF INCUBATION. Complete Labs and/or images reviewed: Labs reviewed by me, Image(s) reviewed by me Problem List/Assessment/Plan Problem List/Assessment/Plan Sepsis due to Multifocal pneumonia gram+/ gram-/ possible yeast infection Acute respiratory failure resolved Hypertension Autoimmune disease Neuropathic pain Morbid obesity Transaminitis Sinus tachycardia Cardiac diet IV fluids given Zosyn+ vancomycin + doxycycline+ fluconazole Enoxaparin SC daily Med nebs Due to patient's uncontrolled pain, [place] was raised to q.4 hours PRN O2 4L/min Case discussed with Dr Marion Plan discussed with: Patient, Other (RN) My Orders My Orders Orders - GABRIELLA AGOSTO RESDIENT Procedure Category Date Status Time Hydrocodone-Acet PHA 01/19/25 In Process 10/325mg Tab ([place] 11:15 Basic Metabolic Panel LAB 01/20/25 Verified 04:00 Complete Blood Count LAB 01/20/25 Verified 04:00 Dietary Evaluation Review Comments: 1) Continue cardiac diet. Encourage optimal PO intake 2) Refer to outpatient RD for weight management 3) Follow-up with cardiology and pulmonology 4) Continue to monitor I&O, labs, and skin integrity Expected Outcomes/Goals: 1) appetite and labs to improve 2) gradual wt loss 3) f/u in 3-5 days Addendum Addendum Addendum I was physically present for the maciel portions of the service provided to patient by THE RESIDENT. I have reviewed the documentation, discussed the case with resident and agree with the resident's documentation except as noted. Also the patient's clinical case was discussed with the patient's nurse. This medical document was created using an electronic medical record system with computerized dictation system. Although this document has been carefully reviewed, there might still be some phonetic and typographical errors. These areas are purely typographical due to imperfections of the software programs, and do not reflect any compromise in the patient's medical care. Late signature. Date of Service: Jan 19, 2025 Billing Provider: RAFA MARION MD Common Visit Codes: [id number] INP/OBS CARE(HIGH) DEBORAHMONIKAROBBINDEBORAHGUCCI RESDIENT Jan 19, 2025 13:50 RAFA MARION MD Jan 20, 2025 05:34
--- NOTE | 2025-01-19 22:53 | DVHPN2 ---
Progress Note - Dictate Date Seen: Jan 19, 2025 Has the PT tested + for MRSA If YES, has PT been informed?: No Medical Necessity Reason Pt with a Central, PICC or Fol: No Subjective Patient was seen and evaluated in follow up. Patient is c/o SOB and productive cough. WBC 12.2, ALT 64. Yeast is growing in the sputum. ABG improved. Echocardiogram showed an EF of 75%. Telemetry reviewed. vital signs Vital Sign Date Time Temp Pulse Resp B/P (MAP) Pulse Ox O2 Delivery O2 Flow Rate FiO2 01/19/25 17:23 97.8 103 18 148/78 (101) 95 97.8 01/19/25 10:00 Nasal Cannula 4.0 01/19/25 10:00 36 Total Intake and Output 01/18/25 01/18/25 01/19/25 15:00 23:00 07:00 Intake Total 200 ml 1000 ml 1150 ml Balance 200 ml 1000 ml 1150 ml medications Current Medications Medications Dose Ordered Sig/Jazmin Route Start Time Stop Time Status Last Admin Dose Admin Amlodipine Besylate 10 mg DAILY PO 01/14/25 10:00 01/19/25 09:27 10 MG Ibuprofen 400 mg Q8HP PRN PO 01/14/25 16:45 01/19/25 09:39 400 MG Doxycycline Hyclate 100 ml @ 50 mls/hr Q12H IV 01/15/25 15:30 01/19/25 16:02 50 MLS/HR Piperacillin Sod/ Tazobactam Sod 100 ml @ 25 mls/hr Q6HR IV 01/16/25 18:00 01/19/25 11:30 25 MLS/HR Vancomycin HCl 0 ml @ 0 mls/hr UD IV 01/16/25 16:30 Enoxaparin Sodium 40 mg DAILY SC 01/17/25 10:00 01/19/25 09:27 40 MG Vancomycin HCl 250 ml @ 250 mls/hr Q8H IV 01/19/25 00:00 01/19/25 16:41 250 MLS/HR Acetaminophen/ Hydrocodone Bitart 1 tab Q4HPRN PRN PO 01/19/25 11:15 01/19/25 15:29 1 TAB objective GENERAL: Alert and oriented x 3. No acute distress. Obesity. EYES: PERRL, EOMI. Anicteric. HENT: Moist mucous membranes. LUNGS: Clear to auscultation bilaterally. CARDIOVASCULAR: Regular rate and rhythm. ABDOMEN: Soft, nontender and nondistended. EXTREMITIES: No edema. NEUROLOGIC: No focal neurological deficits. SKIN: Warm, dry. laboratory and microbiology Laboratory Tests 01/19/25 04:45 Test 01/19/25 04:45 Range/Units Serum Glucose 85 74-106 mg/dL Problem List Sepsis due to multifocal pneumonia. Acute respiratory failure. Hypertension. Autoimmune disease. Morbid obesity. Transaminitis. Sinus tachycardia. Assessment/Plan Continued all current supportive medical care. [place] for pain management. Amlodipine. IV antibiotics as ordered. DVT prophylactics. Additional plan as per the hospital course. Dietary Evaluation Review Comments: 1) Continue cardiac diet. Encourage optimal PO intake 2) Refer to outpatient RD for weight management 3) Follow-up with cardiology and pulmonology 4) Continue to monitor I&O, labs, and skin integrity Expected Outcomes/Goals: 1) appetite and labs to improve 2) gradual wt loss 3) f/u in 3-5 days Plan discussed with: Patient JOE FLAHERTY MD Jan 19, 2025 18:02
[2025-01-20] VITALS (7 sets, daily range): BP systolic 109–145; BP diastolic 71–86; PULSE 91–99; RESP 18–21; TEMP 98.1–98.4; O2SAT 96–97
[2025-01-20 08:07] LABS: Hemoglobin 14.2 g/dL (12.2-16.2); Nucleated Red Blood Cells % 0.0 %
[2025-01-20 08:08] LABS: Hematocrit 41.5 % (36.0-46.0); Mean Corpuscular Hemoglobin 30.2 pg (28.0-32.0); Mean Corpuscular Volume 88.4 fL (80.0-100.0)
[2025-01-20 08:12] LABS: Anion Gap 10 (5-15); Carbon Dioxide 27 mmol/L (20-31); Chloride 105 mmol/L (98-107); Potassium 4.2 mmol/L (3.5-5.1); Sodium 142 mmol/L (136-145)
[2025-01-20 08:13] LABS: Calcium 9.7 mg/dL (8.7-10.4)
[2025-01-20 08:18] LABS: Glucose 86 mg/dL (74-106)
[2025-01-20] MEDS: VANCOMYCIN 1GM/200ML PM 200 ML IV ONE (08:31)
[2025-01-20 08:56] LABS: BUN/Creatinine Ratio 15.9 (10.0-20.0); Blood Urea Nitrogen 13 mg/dL (9-23)
--- NOTE | 2025-01-20 13:28 | DVHPN2 ---
Subjective Patient is still on oxygen. Dry cough. Endorses she is much improved. Reviewed: H&P Changes from previous H/P or p: No Changes General: Per HPI Objective Vitals Vital Signs Date Time Temp Pulse Resp B/P (MAP) Pulse Ox O2 Delivery O2 Flow Rate FiO2 01/20/25 10:00 97 Nasal Cannula 4.0 01/20/25 10:00 36 01/20/25 09:21 145/71 01/20/25 09:00 98.1 91 20 98.1 Intake/Output Intake and Output 01/20/25 07:00 Intake Total 2950 ml Balance 2950 ml Intake Oral 1600 ml IV Total 1350 ml # Voids 4 # Bowel Movements 1 Exam GEN: Healthy appearing, well-developed, NAD. HEENT: NC/AT; MMM. CV: RRR, no m/r/g. LUNGS: Rales bilaterally up to upper lobes bilaterally ABD: Soft, NT/ND, NBS, no masses or organomegaly. EXT: skin Warm, well perfused. no rashes. No clubbing, cyanosis, or edema. No pitting edema no JVD NEURO: Ambulating with no limitations. No focal deficits. Medications Current Medications Medications Dose Ordered Sig/Jazmin Route Start Time Stop Time Status Last Admin Dose Admin Amlodipine Besylate 10 mg DAILY PO 01/14/25 10:00 01/20/25 09:21 10 MG Ibuprofen 400 mg Q8HP PRN PO 01/14/25 16:45 01/19/25 22:28 400 MG Doxycycline Hyclate 100 ml @ 50 mls/hr Q12H IV 01/15/25 15:30 01/20/25 04:01 50 MLS/HR Piperacillin Sod/ Tazobactam Sod 100 ml @ 25 mls/hr Q6HR IV 01/16/25 18:00 01/20/25 11:31 25 MLS/HR Vancomycin HCl 0 ml @ 0 mls/hr UD IV 01/16/25 16:30 Enoxaparin Sodium 40 mg DAILY SC 01/17/25 10:00 01/20/25 09:21 40 MG Vancomycin HCl 250 ml @ 250 mls/hr Q8H IV 01/19/25 00:00 01/20/25 09:20 250 MLS/HR Acetaminophen/ Hydrocodone Bitart 1 tab Q4HPRN PRN PO 01/19/25 11:15 01/20/25 11:55 1 TAB Laboratory Results Laboratory Tests 01/20/25 07:18 Chemistry Test 01/20/25 07:18 Calcium Level 9.7 mg/dL (8.7-10.4) Urinalysis Test 01/13/25 17:00 Urine Color Light-yellow (Yellow) Urine Clarity Turbid (Clear) H Urine pH 6.5 (5.0-9.0) Urine Specific [place] 1.008 (1.001-1.035) Urine Protein Negative (Negative) Urine Ketones 1+ (Negative) H Urine Blood 2+ /uL (Negative) H Urine Nitrite Negative (Negative) Urine Bilirubin Negative (Negative) Urine Urobilinogen Normal mg/dL (Negative) Urine Leukocyte Esterase Trace /uL (Negative) Urine RBC 3 /hpf (0 - 4) Urine Microscopic WBC 1 /HPF (0-5) Urine Squamous Epithelial Cells Mod /hpf (<5) Urine Bacteria Few /hpf (None Seen) H Urine Glucose Normal mg/dL (Normal) Microbiology Microbiology Date/Time Source Procedure Growth Status 01/16/25 18:00 Sputum Expectorated Sputum Gram Stain - Final Resulted 01/16/25 18:00 Sputum Expectorated Sputum Respiratory Culture - Preliminary Resulted 01/14/25 18:30 Nose MRSA Screen - Final Complete 01/13/25 20:12 Blood Blood Culture - Final NO GROWTH AFTER 5 DAYS OF INCUBATION. Complete Labs and/or images reviewed: Labs reviewed by me, Image(s) reviewed by me Assessment/Plan Assessment/Plan 01/20--patient on 4 L oxygen. She feels better looks comfortable. No increased work of breathing or using accessory muscles. Speaking in full sentences. Patient is on broad-spectrum antibiotics vancomycin Zosyn doxycycline Diflucan. She has ground-glass opacities bilateral lower lobes and hilar lymphadenopathy. Patient has been receiving antibiotics for 6-7 days and still not able to be weaned off of oxygen. I have concern for possible I LD. Patient may benefit from pulmonology consult and/or steroids. I will deescalate antibiotics as there are no cultures proving resistant organisms and there is no high-risk conditions/exposure. Diflucan was not started I will resume Diflucan. Sepsis due to Multifocal pneumonia gram+/ gram-/ possible yeast infection Acute hypoxemic respiratory failure Hypertension Autoimmune disease Neuropathic pain Morbid obesity Transaminitis Sinus tachycardia Cardiac diet IV fluids given Cefepime/doxycycline/Diflucan (prior Zosyn+ vancomycin + doxycycline+ fluconazole ) Enoxaparin SC daily Med nebs Due to patient's uncontrolled pain, [place] was raised to q.4 hours PRN O2 4L/min Plan discussed with: Patient, Other Date of Service: Jan 20, 2025 Billing Provider: ONELIA BATEMAN MD Common Visit Codes: [id number] INP/OBS CARE(HIGH) ONELIA BATEMAN MD Jan 20, 2025 13:28
[2025-01-20] MEDS: CEFEPIME 1GM/ 50ML 50 ML IV SCH (14:41)
[2025-01-20] MEDS: predniSONE 20 MG TAB PO SCH (21:33)
--- NOTE | 2025-01-20 21:55 | DVHPN2 ---
Progress Note - Dictate Date Seen: Jan 20, 2025 Has the PT tested + for MRSA If YES, has PT been informed?: No Medical Necessity Reason Pt with a Central, PICC or Fol: No Subjective Patient was seen and evaluated in follow up. Patient is on 4 LPM NC. Patient is c/o a dry cough. CBC and Chemistry are unremarkable. Telemetry reviewed. vital signs Vital Sign Date Time Temp Pulse Resp B/P (MAP) Pulse Ox O2 Delivery O2 Flow Rate FiO2 01/20/25 17:13 98.4 92 21 139/86 (103) 97 98.4 01/20/25 10:00 Nasal Cannula 4.0 01/20/25 10:00 36 Total Intake and Output 01/19/25 01/19/25 01/20/25 15:00 23:00 07:00 Intake Total 350 ml 1150 ml 1450 ml Balance 350 ml 1150 ml 1450 ml medications Current Medications Medications Dose Ordered Sig/Jazmin Route Start Time Stop Time Status Last Admin Dose Admin Amlodipine Besylate 10 mg DAILY PO 01/14/25 10:00 01/20/25 09:21 10 MG Ibuprofen 400 mg Q8HP PRN PO 01/14/25 16:45 01/20/25 18:55 400 MG Doxycycline Hyclate 100 ml @ 50 mls/hr Q12H IV 01/15/25 15:30 01/20/25 14:41 50 MLS/HR Enoxaparin Sodium 40 mg DAILY SC 01/17/25 10:00 01/20/25 09:21 40 MG Acetaminophen/ Hydrocodone Bitart 1 tab Q4HPRN PRN PO 01/19/25 11:15 01/20/25 17:19 1 TAB Cefepime HCl 50 ml @ 12.5 mls/hr Q8HR IV 01/20/25 14:00 01/20/25 14:41 12.5 MLS/HR Fluconazole 100 ml @ 100 mls/hr 10,11 IV 01/21/25 10:00 Prednisone 20 mg BID PO 01/20/25 22:00 01/25/25 21:59 objective GENERAL: Alert and oriented x 3. No acute distress. Obesity. EYES: PERRL, EOMI. Anicteric. HENT: Moist mucous membranes. LUNGS: Clear to auscultation bilaterally. CARDIOVASCULAR: Regular rate and rhythm. ABDOMEN: Soft, nontender and nondistended. EXTREMITIES: No edema. NEUROLOGIC: No focal neurological deficits. SKIN: Warm, dry. laboratory and microbiology Laboratory Tests 01/20/25 07:18 Test 01/20/25 07:18 Range/Units Serum Glucose 86 74-106 mg/dL Problem List Sepsis due to multifocal pneumonia. Acute respiratory failure. Hypertension. Autoimmune disease. Morbid obesity. Transaminitis. Sinus tachycardia. Assessment/Plan Continued all current supportive medical care. [place] for pain management. Amlodipine. IV antibiotics as ordered. DVT prophylactics. Additional plan as per the hospital course. Dietary Evaluation Review Comments: 1) Continue cardiac diet. Encourage optimal PO intake 2) Refer to outpatient RD for weight management 3) Follow-up with cardiology and pulmonology 4) Continue to monitor I&O, labs, and skin integrity Expected Outcomes/Goals: 1) appetite and labs to improve 2) gradual wt loss 3) f/u in 3-5 days Plan discussed with: Patient JOE FLAHERTY MD Jan 20, 2025 21:55
--- NOTE | 2025-01-20 23:46 | DVHINCON2 ---
Date of service: Jan 20, [address] Sheth Reason for Consultation Acute hypoxic respiratory failure, pneumonia and sepsis. History of Present Illness A 40-year-old woman with past medical history of hypertension who presented to ED on 01/13/25 for evaluation of shortness of breath. Patient reported she was seen at [facility] 2 weeks prior and diagnosed with acute bronchitis. She was sent home with prednisone and Augmentin. Patient reported her symptoms have not resolved, continues with productive cough with yellowish phlegm. She reports worsening shortness of breath, unable to take deep breaths. Pt denied chest pain or palpitations. No other acute complaints. Patient was admitted for further care; and pulmonary consultation is requested for evaluation and management of acute hypoxic respiratory failure, pneumonia and sepsis. Review of Systems: 14-point review of systems negative unless otherwise noted above. Past Medical History: Hypertension Past Surgical History: None Medications: Reviewed. Allergies: Codeine Niacin. Family History: Positive for hypertension. No family history of premature CAD. No family history of lung disorders. Social History: Nonsmoker. Occasional alcohol use. No illicit drug use. Family History: Hypertension G8 MOTHER G8 FATHER Allergies: Coded Allergies: Codeine (Verified Allergy, Mild, 01/13/25) UPSET STOMACH PER PT Niacin (Verified Allergy, Unknown, 01/13/25) Home Meds Active Scripts Doxycycline (Monohydrate) (Doxycycline) 100 Mg Cap, 100 MG PO BID for 10 Days, #20 CAP Prov:SUE SAMUEL MD 01/22/25 Metoprolol Succinate (Metoprolol Succinate Er) 50 Mg Tab, 1 TAB PO DAILY for 30 Days, #30 TAB 5 Refills Prov:SUE SAMUEL MD 01/22/25 Prednisone (Prednisone) 20 Mg Tab, 20 MG PO BID for 5 Days, #10 MG Prov:SUE SAMUEL MD 01/22/25 Fluconazole (Fluconazole) 200 Mg Tab, 1 TAB PO DAILY for 14 Days, #14 TAB Prov:SUE SAMUEL MD 01/22/25 Reported Medications Amlodipine Besylate (Amlodipine Besylate) 5 Mg Tab, 10 MG PO DAILY for 30 Days, MG 01/14/25 Discontinued Reported Medications Hydrocodone-Acetaminophen (Hydrocodone/Acetaminophen 10-325 mg) 1 Tab Tab, 1 TAB PO QIDPRN, TAB 01/14/25 Oxycodone Hcl (OXYCODONE HCL) 5 Mg Tb, 2.5 MG PO, TAB 01/14/25 Docusate Sodium (Docusate Sodium) 100 Mg Cap, 100 MG PO BID, CAP 01/14/25 Current Medications Current Medications Medications (Trade) Dose Ordered Sig/Jazmin Route PRN Reason Start Time Stop Time Status Last Admin Cefepime HCl 50 ml @ 12.5 mls/hr Q8HR IV 01/20/25 14:00 01/20/25 21:33 Fluconazole 100 ml @ 100 mls/hr 10,11 IV 01/21/25 10:00 Prednisone 20 mg BID PO 01/20/25 22:00 01/25/25 21:59 01/20/25 21:33 Vital Signs Vital Signs Date Time Temp Pulse Resp B/P (MAP) Pulse Ox O2 Delivery O2 Flow Rate FiO2 01/20/25 17:13 98.4 92 21 139/86 (103) 97 98.4 01/20/25 10:00 Nasal Cannula 4.0 01/20/25 10:00 36 Physical Exam Gen.: Patient lying in bed in no apparent distress. On supplemental oxygen. Head: Normocephalic, atraumatic. Eyes: EOMI/PERRLA. Ears: Normal hearing. Normal anatomy. Neck/trachea: Trachea midline, supple. Nose: Normal external anatomy. Mouth: Moist mucous membranes. Chest: Decreased air entry bilaterally. No wheezing or rhonchi. Cardiovascular: Positive S1, positive S2. Regular rate and rhythm. Abdomen: Positive bowel sounds in all 4 quadrants. Soft, non-tender, non- distended. : Deferred. Rectal: Deferred. Skin: Warm, dry. Intact. Extremities: 2+ radial pulses bilaterally. No lower extremity edema. Neuro: Awake, alert, oriented x3. No gross motor or sensory deficits. Cranial nerves II through XII intact. Gait not assessed. Labs/Diagnostic Data Labs Test 01/20/25 07:18 01/19/25 04:45 01/18/25 15:10 01/18/25 07:58 Range/Units White Blood Count 10.1 4.4-10.8 10^3/uL Red Blood Count 4.70 4.0-5.20 10^6/uL Hemoglobin 14.2 12.2-16.2 g/dL Hematocrit 41.5 36.0-46.0 % Mean Corpuscular Volume 88.4 80.0-100.0 fL Mean Corpuscular Hemoglobin 30.2 28.0-32.0 pg Mean Corpuscular Hemoglobin Concent 34.2 32.0-36.0 g/dL Red Cell Distribution Width 13.5 11.8-14.3 % Platelet Count 455 H 140-450 10^3/uL Mean Platelet Volume 6.6 L 6.9-10.8 fL Neutrophils (%) (Auto) 63.5 37.0-80.0 % Lymphocytes (%) (Auto) 22.1 10.0-50.0 % Monocytes (%) (Auto) 10.0 0.0-12.0 % Eosinophils (%) (Auto) 3.5 0.0-7.0 % Basophils (%) (Auto) 0.9 0.0-2.0 % Neutrophils # (Auto) 6.4 1.6-8.6 10 ^3/uL Lymphocytes # (Auto) 2.2 0.4-5.4 10 ^3/uL Monocytes # (Auto) 1.0 0-1.3 10 ^3/uL Eosinophils # (Auto) 0.3 0-0.8 10 ^3/uL Basophils # (Auto) 0.1 0-0.2 10 ^3/uL Nucleated Red Blood Cells 0.0 % Sodium Level 142 136-145 mmol/L Potassium Level 4.2 3.5-5.1 mmol/L Chloride Level 105 98-107 mmol/L Carbon Dioxide Level 27 20-31 mmol/L Anion Gap 10 5-15 Blood Urea Nitrogen 13 9-23 mg/dL Creatinine 0.82 0.550-1.02 mg/dL Glomerular Filtration Rate Calc 93 >90 mL/min BUN/Creatinine Ratio 15.9 10.0-20.0 Serum Glucose 86 74-106 mg/dL Calcium Level 9.7 8.7-10.4 mg/dL Vancomycin Level Trough 18.1 H 5-10 ug/mL Total Bilirubin 0.8 0.2-1.0 mg/dL Aspartate Amino Transferase (AST) 21 <34 U/L Alanine Aminotransferase (ALT) 64 H 7-40 U/L Alkaline Phosphatase 63 46-116 U/L Total Protein 7.1 5.7-8.2 g/dL Albumin 4.3 3.2-4.8 g/dL Troponin I High Sensitivity < 3 L </=34 ng/L Blood Gas Specimen Type Arterial Blood Gas Sample Site Right radial Blood Gas Patient Temperature 37.0 Arterial Blood Date Drawn [id number] Arterial Blood pH 7.433 7.350-7.450 Arterial Blood Partial Pressure CO2 39.1 32.0-45.0 mmHg Arterial Blood Partial Pressure O2 86.2 83.0-108.0 mmHg Arterial Blood HCO3 25.5 21.0-28.0 mmol/L Arterial Blood Oxygen Saturation 95.9 94.0-98.0 % Arterial Blood Base Excess 1.4 -2.0-3.0 mmol/L Arterial Blood Oxyhemoglobin 94.7 94.0-98.0 % Arterial Blood Carboxyhemoglobin 0.9 0.5-1.5 % Arterial Blood Methemoglobin 0.4 0.0-1.5 % Augustus Test Yes Blood Gas Total Hemoglobin 15.10 12.0-16.0 g/dL Blood Gas Liter Flow 4.00 Blood Gas Modality Nasal cannula FiO2 % 36.0 Test 01/16/25 05:22 01/15/25 05:55 01/14/25 01:00 01/13/25 22:12 Range/Units Hemoglobin A1c 5.6 <5.7 % A1C Hepatitis A IgM Antibody Negative Hepatitis B Surface Antigen Negative Negative Hepatitis B Core IgM Antibody Negative Negative Hepatitis C Antibody Negative Negative Influenza Type A Antigen Negative Negative Influenza Type B Antigen Negative Negative SARS-CoV-2 Antigen (Rapid) Negative NEGATIVE Lactic Acid Level 5.8 *H 0.4-2.0 mmol/L Test 01/13/25 17:00 01/13/25 16:40 Range/Units Urine Color Light-yellow Yellow Urine Clarity Turbid H Clear Urine pH 6.5 5.0-9.0 Urine Specific [place] 1.008 1.001-1.035 Urine Protein Negative Negative Urine Ketones 1+ H Negative Urine Blood 2+ H Negative /uL Urine Nitrite Negative Negative Urine Bilirubin Negative Negative Urine Urobilinogen Normal Negative mg/dL Urine Leukocyte Esterase Trace Negative /uL Urine RBC 3 0 - 4 /hpf Urine Microscopic WBC 1 0-5 /HPF Urine Squamous Epithelial Cells Mod <5 /hpf Urine Bacteria Few H None Seen /hpf Urine Glucose Normal Normal mg/dL Urine Opiates Screen Pos NEGATIVE Urine Fentanyl Screen Neg NEGATIVE Urine Barbiturates Screen Neg NEGATIVE Urine Phencyclidine Screen Neg NEGATIVE Urine Amphetamines Screen Neg NEGATIVE Urine Benzodiazepines Screen Neg NEGATIVE Urine Cocaine Screen Neg NEGATIVE Urine Cannabinoids Screen Neg NEGATIVE D-Dimer, Quantitative 0.29 0.0-0.49 mg/L FEU B-Type Natriuretic Peptide 5.01 0-100 pg/mL Thyroid Stimulating Hormone (TSH) 0.89 0.55-4.78 uIU/mL Microbiology Date/Time Source Procedure Growth Status 01/16/25 18:00 Sputum Expectorated Sputum Gram Stain - Final Complete 01/16/25 18:00 Respiratory Culture - Final Presumptive Ingris albicans Complete 01/14/25 18:30 Nose MRSA Screen - Final Complete 01/13/25 20:12 Blood Blood Culture - Final NO GROWTH AFTER 5 DAYS OF INCUBATION. Complete Assessment Impression: Acute hypoxic respiratory failure Dependence on supplemental oxygen Pneumonia, likely gram negative/gram positive Sepsis Atelectasis GGO on imaging Mediastinal and hilar lymphadenopathy, possibly reactive. Eosinophilia (300-400) Morbid obesity, BMI 42.4 Plan: Supplemental oxygen 4 LPM NC Titrate to keep O2 sats above 92%. Taper O2 as tolerated. Pt with cough productive of white sputum. Continue antibiotics Blood cultures show no growth Send sputum for Gram stain and cultures Steroids - recommend prednisone course Antifungal given tree-in-bud opacities. Incentive spirometry for atelectasis Monitor renal function. Monitor electrolytes. Supplement as necessary. Monitor ins and outs. Diet and lifestyle modifications for weight reduction Obesity complicates all care DVT prophylaxis. Prognosis: Poor given patient's multiple co-morbidities. Rest of plan per hospitalist and other consultants. Thank you Dr. Sheth for allowing me to participate in this patient's care. Further recommendations will depend on the patient's clinical course. Please do not hesitate to contact me if you have any questions or concerns. This medical document was created using an electronic medical record system with [employer] dictation system. Although these documentations are being carefully reviewed, there may still be some phonetic and typographical changes. The errors are purely typographical, due to imperfection on the software program, and do not reflect any compromise in the patient's medical care. Plan discussed with: Patient, Other (LINDA Ordoñez/Dr. Sheth) VANIA ALBARADO MD Jan 20, 2025 23:46
[2025-01-21] VITALS (10 sets, daily range): BP systolic 115–130; BP diastolic 70–79; PULSE 91–133; RESP 17–19; TEMP 97–98.2; O2SAT 94–98
[2025-01-21 07:37] LABS: Hemoglobin 14.7 g/dL (12.2-16.2); Mean Corpuscular Volume 87.7 fL (80.0-100.0); Nucleated Red Blood Cells % 0.0 %
[2025-01-21 07:39] LABS: Hematocrit 41.5 % (36.0-46.0); Mean Corpuscular Hemoglobin 31.0 pg (28.0-32.0)
[2025-01-21 07:47] LABS: Albumin 4.5 g/dL (3.2-4.8); Alkaline Phosphatase 69 U/L (46-116); Anion Gap 11 (5-15); BUN/Creatinine Ratio 14.9 (10.0-20.0); Bilirubin, Total 0.4 mg/dL (0.2-1.0); Blood Urea Nitrogen 11 mg/dL (9-23); Calcium 10.3 mg/dL (8.7-10.4); Carbon Dioxide 26 mmol/L (20-31); Chloride 103 mmol/L (98-107); Potassium 4.4 mmol/L (3.5-5.1); Sodium 140 mmol/L (136-145); Total Protein 7.4 g/dL (5.7-8.2)
[2025-01-21 07:49] LABS: Glucose 112 mg/dL (74-106)
[2025-01-21 07:50] LABS: Alanine Aminotransferase 43 U/L (7-40)
[2025-01-21] MEDS: FLUCONAZOLE 200MG/100ML 100 ML IV SCH (08:45)
--- NOTE | 2025-01-21 14:11 | DVHPN2 ---
Assessment/Plan Assessment/Plan progress note 40 F with neuropathy, morbid obesity, admitted for pneumonia. persistent o2 req not improving after abx, escalated to antifungals. seen today during rounds. 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
--- NOTE | 2025-01-21 23:39 | DVHPN2 ---
Progress Note - Dictate Date Seen: Jan 21, 2025 Has the PT tested + for MRSA If YES, has PT been informed?: No Medical Necessity Reason Pt with a Central, PICC or Fol: No Subjective Patient was seen and evaluated in follow up. Patient is on 4 LPM NC. Patient complains of dry cough with SOB. Denies any chest pain. Telemetry reviewed. vital signs Vital Sign Date Time Temp Pulse Resp B/P (MAP) Pulse Ox O2 Delivery O2 Flow Rate FiO2 01/21/25 21:00 97.3 113 19 123/79 (94) 94 97.3 01/21/25 10:13 Nasal Cannula 4.0 01/21/25 10:00 36 Total Intake and Output 01/20/25 01/20/25 01/21/25 15:00 23:00 07:00 Intake Total 350 ml 1450 ml 850 ml Balance 350 ml 1450 ml 850 ml medications Current Medications Medications Dose Ordered Sig/Jazmin Route Start Time Stop Time Status Last Admin Dose Admin Amlodipine Besylate 10 mg DAILY PO 01/14/25 10:00 01/21/25 08:44 10 MG Ibuprofen 400 mg Q8HP PRN PO 01/14/25 16:45 01/21/25 14:36 400 MG Doxycycline Hyclate 100 ml @ 50 mls/hr Q12H IV 01/15/25 15:30 01/21/25 13:52 50 MLS/HR Enoxaparin Sodium 40 mg DAILY SC 01/17/25 10:00 01/21/25 08:45 40 MG Acetaminophen/ Hydrocodone Bitart 1 tab Q4HPRN PRN PO 01/19/25 11:15 01/21/25 22:09 1 TAB Cefepime HCl 50 ml @ 12.5 mls/hr Q8HR IV 01/20/25 14:00 01/21/25 21:19 12.5 MLS/HR Fluconazole 100 ml @ 100 mls/hr 10,11 IV 01/21/25 10:00 01/21/25 11:40 100 MLS/HR Prednisone 20 mg BID PO 01/20/25 22:00 01/25/25 21:59 01/21/25 21:19 20 MG objective GENERAL: Alert and oriented x 3. No acute distress. Obesity. EYES: PERRL, EOMI. Anicteric. HENT: Moist mucous membranes. LUNGS: Clear to auscultation bilaterally. CARDIOVASCULAR: Regular rate and rhythm. ABDOMEN: Soft, nontender and nondistended. EXTREMITIES: No edema. NEUROLOGIC: No focal neurological deficits. SKIN: Warm, dry. laboratory and microbiology Laboratory Tests 01/21/25 06:10 Test 01/21/25 06:10 Range/Units Serum Glucose 112 H 74-106 mg/dL Problem List Sepsis due to multifocal pneumonia. Acute respiratory failure. Hypertension. Autoimmune disease. Morbid obesity. Transaminitis. Sinus tachycardia. Assessment/Plan Continued all current supportive medical care. [place] for pain management. Amlodipine. IV antibiotics as ordered. DVT prophylactics. Additional plan as per the hospital course. Dietary Evaluation Review Comments: 1) Continue cardiac diet. Encourage optimal PO intake 2) Refer to outpatient RD for weight management 3) Follow-up with cardiology and pulmonology 4) Continue to monitor I&O, labs, and skin integrity Expected Outcomes/Goals: 1) appetite and labs to improve 2) gradual wt loss 3) f/u in 3-5 days Plan discussed with: Patient JOE FLAHERTY MD Jan 21, 2025 23:39
--- NOTE | 2025-01-21 23:45 | DVHPN2 ---
Progress Note - Dictate Date Seen: Jan 21, 2025 Has the PT tested + for MRSA If YES, has PT been informed?: No Medical Necessity Reason Pt with a Central, PICC or Fol: No Subjective Patient seen and examined at bedside. Remains on supplemental oxygen Overnight events reviewed. vital signs Vital Sign Date Time Temp Pulse Resp B/P (MAP) Pulse Ox O2 Delivery O2 Flow Rate FiO2 01/21/25 21:00 97.3 113 19 123/79 (94) 94 97.3 01/21/25 10:13 Nasal Cannula 4.0 01/21/25 10:00 36 Total Intake and Output 01/20/25 01/20/25 01/21/25 15:00 23:00 07:00 Intake Total 350 ml 1450 ml 850 ml Balance 350 ml 1450 ml 850 ml medications Current Medications Medications Dose Ordered Sig/Jazmin Route Start Time Stop Time Status Last Admin Dose Admin Amlodipine Besylate 10 mg DAILY PO 01/14/25 10:00 01/21/25 08:44 10 MG Ibuprofen 400 mg Q8HP PRN PO 01/14/25 16:45 01/21/25 14:36 400 MG Doxycycline Hyclate 100 ml @ 50 mls/hr Q12H IV 01/15/25 15:30 01/21/25 13:52 50 MLS/HR Enoxaparin Sodium 40 mg DAILY SC 01/17/25 10:00 01/21/25 08:45 40 MG Acetaminophen/ Hydrocodone Bitart 1 tab Q4HPRN PRN PO 01/19/25 11:15 01/21/25 22:09 1 TAB Cefepime HCl 50 ml @ 12.5 mls/hr Q8HR IV 01/20/25 14:00 01/21/25 21:19 12.5 MLS/HR Fluconazole 100 ml @ 100 mls/hr 10,11 IV 01/21/25 10:00 01/21/25 11:40 100 MLS/HR Prednisone 20 mg BID PO 01/20/25 22:00 01/25/25 21:59 01/21/25 21:19 20 MG objective Gen.: Patient lying in bed in no apparent distress. On supplemental oxygen. Head: Normocephalic, atraumatic. Eyes: EOMI/PERRLA. Ears: Normal hearing. Normal anatomy. Neck/trachea: Trachea midline, supple. Nose: Normal external anatomy. Mouth: Moist mucous membranes. Chest: Decreased air entry bilaterally. No wheezing or rhonchi. Cardiovascular: Positive S1, positive S2. Regular rate and rhythm. Abdomen: Positive bowel sounds in all 4 quadrants. Soft, non-tender, non- distended. : Deferred. Rectal: Deferred. Skin: Warm, dry. Intact. Extremities: 2+ radial pulses bilaterally. No lower extremity edema. Neuro: Awake, alert, oriented x3. No gross motor or sensory deficits. Cranial nerves II through XII intact. Gait not assessed. laboratory and microbiology Laboratory Tests 01/21/25 06:10 Test 01/21/25 06:10 Range/Units Serum Glucose 112 H 74-106 mg/dL Assessment/Plan Impression: Acute hypoxic respiratory failure Dependence on supplemental oxygen Pneumonia, likely gram negative/gram positive Sepsis Atelectasis GGO on imaging Mediastinal and hilar lymphadenopathy, possibly reactive. Eosinophilia (300-400) Morbid obesity, BMI 42.4 Events: Remains on supplemental oxygen, 4 LPM NC Taper O2 as tolerated No overnight events. Continue steroids - prednisone Continue antibiotics/antifungal Incentive spirometry Labs and imaging reviewed. Rest of plan as noted below. Plan: Supplemental oxygen Titrate to keep O2 sats above 92%. Pt with cough productive of white sputum. Continue antibiotics Blood cultures show no growth Follow up sputum cultures Steroids - recommend prednisone course Antifungal given tree-in-bud opacities. Incentive spirometry for atelectasis Monitor renal function. Monitor electrolytes. Supplement as necessary. Monitor ins and outs. Diet and lifestyle modifications for weight reduction Obesity complicates all care DVT prophylaxis. Prognosis: Guarded given patient's multiple co-morbidities. Rest of plan per hospitalist and other consultants. Thank you Dr. Sheth for allowing me to participate in this patient's care. Further recommendations will depend on the patient's clinical course. Please do not hesitate to contact me if you have any questions or concerns. This medical document was created using an electronic medical record system with [employer] system. Although these documentations are being carefully reviewed, there may still be some phonetic and typographical changes. The errors are purely typographical, due to imperfection on the software program, and do not reflect any compromise in the patient's medical care. Dietary Evaluation Review Comments: 1) Continue cardiac diet. Encourage optimal PO intake 2) Refer to outpatient RD for weight management 3) Follow-up with cardiology and pulmonology 4) Continue to monitor I&O, labs, and skin integrity Expected Outcomes/Goals: 1) appetite and labs to improve 2) gradual wt loss 3) f/u in 3-5 days Plan discussed with: Patient, Other (RN Souleymane) VANIA ALBARADO MD Jan 21, 2025 23:45
[2025-01-22] VITALS (7 sets, daily range): BP systolic 107–138; BP diastolic 67–90; PULSE 84–110; RESP 17–18; TEMP 97–97.5; O2SAT 91–98
[2025-01-22 10:32] LABS: Nucleated Red Blood Cells % 0.0 %
[2025-01-22 10:34] LABS: Hematocrit 46.6 % (36.0-46.0); Hemoglobin 15.9 g/dL (12.2-16.2); Mean Corpuscular Hemoglobin 29.6 pg (28.0-32.0); Mean Corpuscular Volume 86.8 fL (80.0-100.0)
[2025-01-22 10:44] LABS: Chloride 103 mmol/L (98-107); Potassium 4.0 mmol/L (3.5-5.1); Sodium 138 mmol/L (136-145)
[2025-01-22 10:45] LABS: Anion Gap 12 (5-15); Calcium 10.0 mg/dL (8.7-10.4); Carbon Dioxide 23 mmol/L (20-31)
[2025-01-22 10:50] LABS: BUN/Creatinine Ratio 15.9 (10.0-20.0); Blood Urea Nitrogen 11 mg/dL (9-23)
[2025-01-22 10:52] LABS: Glucose 184 mg/dL (74-106)
[2025-01-22] MEDS ORDERED: FLUC200T50 PO (11:44)
[2025-01-22] MEDS ORDERED: METO-289 PO (11:44)
[2025-01-22] MEDS ORDERED: DOXY100C79 PO (11:44)
[2025-01-22] MEDS ORDERED: PRED20TA2 PO (11:44)
--- NOTE | 2025-01-22 11:46 | DVHDS2 ---
Discharge Summary Date of Admission Jan 13, 2025 at 19:46 Date of Discharge: Jan 22, 2025 Labs/Diagnostic Data: Laboratory Results Test 01/22/25 10:12 01/21/25 06:10 01/20/25 07:18 01/18/25 15:10 White Blood Count 11.2 10^3/uL (4.4-10.8) Red Blood Count 5.37 10^6/uL (4.0-5.20) Hemoglobin 15.9 g/dL (12.2-16.2) Hematocrit 46.6 % (36.0-46.0) Mean Corpuscular Volume 86.8 fL (80.0-100.0) Mean Corpuscular Hemoglobin 29.6 pg (28.0-32.0) Mean Corpuscular Hemoglobin Concent 34.0 g/dL (32.0-36.0) Red Cell Distribution Width 13.7 % (11.8-14.3) Platelet Count 501 10^3/uL (140-450) Mean Platelet Volume 6.8 fL (6.9-10.8) Neutrophils (%) (Auto) 76.0 % (37.0-80.0) Lymphocytes (%) (Auto) 18.3 % (10.0-50.0) Monocytes (%) (Auto) 5.1 % (0.0-12.0) Eosinophils (%) (Auto) 0.3 % (0.0-7.0) Basophils (%) (Auto) 0.3 % (0.0-2.0) Neutrophils # (Auto) 8.5 10 ^3/uL (1.6-8.6) Lymphocytes # (Auto) 2.0 10 ^3/uL (0.4-5.4) Monocytes # (Auto) 0.6 10 ^3/uL (0-1.3) Eosinophils # (Auto) 0 10 ^3/uL (0-0.8) Basophils # (Auto) 0 10 ^3/uL (0-0.2) Nucleated Red Blood Cells 0.0 % Sodium Level 138 mmol/L (136-145) Potassium Level 4.0 mmol/L (3.5-5.1) Chloride Level 103 mmol/L (98-107) Carbon Dioxide Level 23 mmol/L (20-31) Anion Gap 12 (5-15) Blood Urea Nitrogen 11 mg/dL (9-23) Creatinine 0.69 mg/dL (0.550-1.02) Glomerular Filtration Rate Calc 112 mL/min (>90) BUN/Creatinine Ratio 15.9 (10.0-20.0) Serum Glucose 184 mg/dL (74-106) Calcium Level 10.0 mg/dL (8.7-10.4) Total Bilirubin 0.4 mg/dL (0.2-1.0) Aspartate Amino Transferase (AST) 19 U/L (13-40) Alanine Aminotransferase (ALT) 43 U/L (7-40) Alkaline Phosphatase 69 U/L (46-116) Total Protein 7.4 g/dL (5.7-8.2) Albumin 4.5 g/dL (3.2-4.8) Vancomycin Level Trough 18.1 ug/mL (5-10) Troponin I High Sensitivity < 3 ng/L (</=34) Test 01/18/25 07:58 01/16/25 05:22 01/15/25 05:55 01/14/25 01:00 Blood Gas Specimen Type Arterial Blood Gas Sample Site Right radial Blood Gas Patient Temperature 37.0 Arterial Blood Date Drawn [id number] Arterial Blood pH 7.433 (7.350-7.450) Arterial Blood Partial Pressure CO2 39.1 mmHg (32.0-45.0) Arterial Blood Partial Pressure O2 86.2 mmHg (83.0-108.0) Arterial Blood HCO3 25.5 mmol/L (21.0-28.0) Arterial Blood Oxygen Saturation 95.9 % (94.0-98.0) Arterial Blood Base Excess 1.4 mmol/L (-2.0-3.0) Arterial Blood Oxyhemoglobin 94.7 % (94.0-98.0) Arterial Blood Carboxyhemoglobin 0.9 % (0.5-1.5) Arterial Blood Methemoglobin 0.4 % (0.0-1.5) [place] Test Yes Blood Gas Total Hemoglobin 15.10 g/dL (12.0-16.0) Blood Gas Liter Flow 4.00 Blood Gas Modality Nasal cannula FiO2 % 36.0 Hemoglobin A1c 5.6 % A1C (<5.7) Hepatitis A IgM Antibody Negative Hepatitis B Surface Antigen Negative (Negative) Hepatitis B Core IgM Antibody Negative (Negative) Hepatitis C Antibody Negative (Negative) Influenza Type A Antigen Negative (Negative) Influenza Type B Antigen Negative (Negative) SARS-CoV-2 Antigen (Rapid) Negative (NEGATIVE) Test 01/13/25 22:12 01/13/25 17:00 01/13/25 16:40 Lactic Acid Level 5.8 mmol/L (0.4-2.0) Urine Color Light-yellow (Yellow) Urine Clarity Turbid (Clear) Urine pH 6.5 (5.0-9.0) Urine Specific [place] 1.008 (1.001-1.035) Urine Protein Negative (Negative) Urine Ketones 1+ (Negative) Urine Blood 2+ /uL (Negative) Urine Nitrite Negative (Negative) Urine Bilirubin Negative (Negative) Urine Urobilinogen Normal mg/dL (Negative) Urine Leukocyte Esterase Trace /uL (Negative) Urine RBC 3 /hpf (0 - 4) Urine Microscopic WBC 1 /HPF (0-5) Urine Squamous Epithelial Cells Mod /hpf (<5) Urine Bacteria Few /hpf (None Seen) Urine Glucose Normal mg/dL (Normal) Urine Opiates Screen Pos (NEGATIVE) Urine Fentanyl Screen Neg (NEGATIVE) Urine Barbiturates Screen Neg (NEGATIVE) Urine Phencyclidine Screen Neg (NEGATIVE) Urine Amphetamines Screen Neg (NEGATIVE) Urine Benzodiazepines Screen Neg (NEGATIVE) Urine Cocaine Screen Neg (NEGATIVE) Urine Cannabinoids Screen Neg (NEGATIVE) D-Dimer, Quantitative 0.29 mg/L FEU (0.0-0.49) B-Type Natriuretic Peptide 5.01 pg/mL (0-100) Thyroid Stimulating Hormone (TSH) 0.89 uIU/mL (0.55-4.78) Other Laboratory Tests 01/22/25 10:12 Brief Hx & Hospital Course: 40 F with neuropathy, morbid obesity, admitted for pneumonia. initially started for empiric therapy. persistent tachycardia, ct done, PE ruled out, tree in bud opacities. escalated abx and added antifungal with sig improvement. patient also has prior rheum visit, no diagnosis but has positive GHISLAINE and axial joint pain. currently off oxygen, discahrged with po fluconazole and doxy to cover for atypicals. 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 patient to follow up with cardio for perisstent tachy, pulm for sleep study and resolution of possible fungal PNA and rheum. 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) Neuropathic pain Morbid obesity Transaminitis Sinus tachycardia possible PITO OHS Discharge Disposition: Home Discharge Instruct/Medications Diet: Consistent carbohydrate, Cardiac 2g Na,low cholest Activity: No Restrictions, As Tolerated Follow Up/Referral: dc clinic 2 weeks pulm for sleep study cardio for event monitor Medications: as dispensed Scheduled Amlodipine Besylate (Amlodipine Besylate), 10 MG PO DAILY, (Reported) Doxycycline (Monohydrate) (Doxycycline), 100 MG PO BID Fluconazole (Fluconazole), 1 TAB PO DAILY Metoprolol Succinate (Metoprolol Succinate Er), 1 TAB PO DAILY Prednisone (Prednisone), 20 MG PO BID Discontinued Medications Docusate Sodium (Docusate Sodium), 100 MG PO BID, (Reported) Hydrocodone-Acetaminophen (Hydrocodone/Acetaminophen 10-325 mg), 1 TAB PO QIDPRN, (Reported) Oxycodone Hcl (Oxycodone Hcl), 2.5 MG PO, (Reported) Discharge Statement: "Patient was advised to return to the ER or call 911 if any headaches, dizziness, shortness of breath, chest pain, abdominal pain, bleeding, fevers, or worsening of medical condition. Patient was counseled about treatment plan, medications, possible side effects, patientverbalized understanding. All questions were answered to the best of my ability. This discharge took greater then 30 minutes in planning, reviewing documentation, counseling the patient, and discussing with other team members." ASSESSMENT ASSESSMENT Assessment pneumonia gp vs gn likely fungal sinus tach persistent morbid obesity chronic pain? Date of Service: Jan 22, 2025 Billing Provider: SUE SAMUEL MD Common Visit Codes: 10889-WHR/OBS DISCH DAY >30min SUE SAMUEL MD Jan 22, 2025 11:46
--- NOTE | 2025-01-22 13:13 | DVH ---
Indication: seroneg spondyloarthropaties Technique: CT axial images of the abdomen and pelvis are obtained without contrast. Coronal and sagit lorenzo reformats were obtained. Radiation Dose Information: CTDI volume is 22.39 mGy. Dose-length product is 1243.77 mGy*cm Comparison: None FINDINGS: There is limited interpretation of the abdomen and pelvis without administration of intravenous contr ast. Lung bases demonstrate left lower lobe tree-in-bud nodularity. Adrenal glands, spleen, pancreas and liver unremarkable in shape. No CT evidence for cholelithiasis. Kidneys demonstrate no hydronephrosis. Stomach is partially distended. Small bowel loops are demonstrating fecal like contents. Large volume stool in the colon. No secondary signs for appendicitis. Bladder partially distended. No free pelvic fluid. No inguinal lymphadenopathy. No aggressive osseous process. Mild bilateral sacroiliac degenerative joint disease. Mild thoracolumbar degenerative disc disease. N o significant ankylosis. No significant osteophytosis. IMPRESSION: Large volume stool within the colon. Fecal like contents within the small bowel which can be seen with ileus, hypomotility, bowel obstruct ion. Left lower lobe tree-in-bud nodularity which can be secondary to atypical infection, bronchiolitis, a spiration. Other findings as described.
--- NOTE | 2025-01-22 22:00 | DVHPN2 ---
Progress Note - Dictate Date Seen: Jan 22, 2025 Has the PT tested + for MRSA If YES, has PT been informed?: No Medical Necessity Reason Pt with a Central, PICC or Fol: No Subjective Patient was seen and evaluated in follow up. Patient has no new complaints at this time. Patient denies any cardiac symptoms. Patient is cardiac stable for discharge. Telemetry reviewed. vital signs Vital Sign Date Time Temp Pulse Resp B/P (MAP) Pulse Ox O2 Delivery O2 Flow Rate FiO2 01/22/25 13:30 97.5 110 17 91 01/22/25 13:00 124/87 (99) 01/22/25 10:00 Room Air* 0 21 Total Intake and Output 01/21/25 01/21/25 01/22/25 15:00 23:00 07:00 Intake Total 250 ml 550 ml 500 ml Balance 250 ml 550 ml 500 ml objective GENERAL: Alert and oriented x 3. No acute distress. Obesity. EYES: PERRL, EOMI. Anicteric. HENT: Moist mucous membranes. LUNGS: Clear to auscultation bilaterally. CARDIOVASCULAR: Regular rate and rhythm. ABDOMEN: Soft, nontender and nondistended. EXTREMITIES: No edema. NEUROLOGIC: No focal neurological deficits. SKIN: Warm, dry. laboratory and microbiology Laboratory Tests 01/22/25 10:12 Test 01/22/25 10:12 Range/Units Serum Glucose 184 H 74-106 mg/dL Problem List Sepsis due to multifocal pneumonia. Acute respiratory failure. Hypertension. Autoimmune disease. Morbid obesity. Transaminitis. Sinus tachycardia. Assessment/Plan Continued all current supportive medical care. [place] and Motrin for pain management. Amlodipine. IV antibiotics as ordered. DVT prophylactics. Additional plan as per the hospital course. Dietary Evaluation Review Comments: 1) Continue cardiac diet. Encourage optimal PO intake 2) Refer to outpatient RD for weight management 3) Follow-up with cardiology and pulmonology 4) Continue to monitor I&O, labs, and skin integrity Expected Outcomes/Goals: 1) appetite and labs to improve 2) gradual wt loss 3) f/u in 3-5 days Plan discussed with: Patient JOE FLAHERTY MD Jan 22, 2025 16:07
--- NOTE | 2025-01-22 23:55 | DVHPN2 ---
Progress Note - Dictate Date Seen: Jan 22, 2025 Has the PT tested + for MRSA If YES, has PT been informed?: No Medical Necessity Reason Pt with a Central, PICC or Fol: No Subjective Patient seen and examined at bedside. Currently on room air Overnight events reviewed. vital signs Vital Sign Date Time Temp Pulse Resp B/P (MAP) Pulse Ox O2 Delivery O2 Flow Rate FiO2 01/22/25 13:30 97.5 110 17 91 01/22/25 13:00 124/87 (99) 01/22/25 10:00 Room Air* 0 21 Total Intake and Output 01/21/25 01/21/25 01/22/25 15:00 23:00 07:00 Intake Total 250 ml 550 ml 500 ml Balance 250 ml 550 ml 500 ml objective Gen.: Patient lying in bed in no apparent distress. On room air. Head: Normocephalic, atraumatic. Eyes: EOMI/PERRLA. Ears: Normal hearing. Normal anatomy. Neck/trachea: Trachea midline, supple. Nose: Normal external anatomy. Mouth: Moist mucous membranes. Chest: Decreased air entry bilaterally. No wheezing or rhonchi. Cardiovascular: Positive S1, positive S2. Regular rate and rhythm. Abdomen: Positive bowel sounds in all 4 quadrants. Soft, non-tender, non- distended. : Deferred. Rectal: Deferred. Skin: Warm, dry. Intact. Extremities: 2+ radial pulses bilaterally. No lower extremity edema. Neuro: Awake, alert, oriented x3. No gross motor or sensory deficits. Cranial nerves II through XII intact. Gait not assessed. laboratory and microbiology Laboratory Tests 01/22/25 10:12 Test 01/22/25 10:12 Range/Units Serum Glucose 184 H 74-106 mg/dL Assessment/Plan Impression: Acute hypoxic respiratory failure Pneumonia, likely gram negative/gram positive Sepsis Atelectasis GGO on imaging Mediastinal and hilar lymphadenopathy, possibly reactive. Eosinophilia (300-400) Morbid obesity, BMI 42.4 Events: Currently breathing on room air Supplemental oxygen PRN No distress No overnight events. Complete steroids Continue antibiotics/antifungal Incentive spirometry Patient is stable for discharge from the pulmonary standpoint. Disposition per hospitalist. Follow up in 2-3 weeks in outpatient Pulmonary Clinic. Labs and imaging reviewed. Rest of plan as noted below. Plan: Supplemental oxygen PRN Titrate to keep O2 sats above 92%. Cough productive of white sputum. Continue antibiotics Blood cultures show no growth Sputum cultures grew presumptive Ingris albicans Steroids - recommend prednisone course Antifungal given tree-in-bud opacities. Incentive spirometry for atelectasis Monitor renal function. Monitor electrolytes. Supplement as necessary. Monitor ins and outs. Diet and lifestyle modifications for weight reduction Obesity complicates all care DVT prophylaxis. Prognosis: Guarded given patient's multiple co-morbidities. Rest of plan per hospitalist and other consultants. Thank you Dr. Sheth for allowing me to participate in this patient's care. Further recommendations will depend on the patient's clinical course. Please do not hesitate to contact me if you have any questions or concerns. This medical document was created using an electronic medical record system with [employer] dictation system. Although these documentations are being carefully reviewed, there may still be some phonetic and typographical changes. The errors are purely typographical, due to imperfection on the software program, and do not reflect any compromise in the patient's medical care. Dietary Evaluation Review Comments: 1) Continue cardiac diet. Encourage optimal PO intake 2) Refer to outpatient RD for weight management 3) Follow-up with cardiology and pulmonology 4) Continue to monitor I&O, labs, and skin integrity Expected Outcomes/Goals: 1) appetite and labs to improve 2) gradual wt loss 3) f/u in 3-5 days Plan discussed with: Patient, Other (LINDA Kumar) VANIA ALBARADO MD Jan 22, 2025 23:55
== END 2025-01-22 15:08 | disposition home or self-care (01) | DRG 871 ==
LOC: EDBD 16:20 → ER 16:20 → OVERFLOW 19:46 → TELE-CENTR 01-14 14:39
PROVIDERS: ADMIT Student in an Organized Health Care Education/Training Program; ATTEND Student in an Organized Health Care Education/Training Program
DX: A41.59 Other Gram-negative sepsis (principal); J15.69 Pneumonia due to other Gram-negative bacteria; J96.01 Acute respiratory failure with hypoxia; B37.89 Other sites of candidiasis; J98.11 Atelectasis; Z68.41 Body mass index [BMI] 40.0-44.9, adult; D72.10 Eosinophilia, unspecified; E66.01 Morbid (severe) obesity due to excess calories; M35.9 Systemic involvement of connective tissue, unspecified; Z20.822 Contact with and (suspected) exposure to COVID-19; I10 Essential (primary) hypertension; Z99.81 Dependence on supplemental oxygen; R74.01 Elevation of levels of liver transaminase levels; R76.8 Other specified abnormal immunological findings in serum; J20.9 Acute bronchitis, unspecified; G62.9 Polyneuropathy, unspecified; R59.0 Localized enlarged lymph nodes; M46.1 Sacroiliitis, not elsewhere classified; R79.82 Elevated C-reactive protein (CRP); G47.33 Obstructive sleep apnea (adult) (pediatric); G89.29 Other chronic pain; Z88.5 Allergy status to narcotic agent; Z82.49 Family history of ischemic heart disease and other diseases of the circulatory system
CPT/HCPCS: 36415; 36600; 71045; 71250; 71275; 74176; 76705; 80048; 80053; 80074; 80202; 80307; 81001; 82805; 83036; 83605; 83880; 84443; 84484; 85025; 85379; 85652; 86141; 87040; 87070; 87077; 87081; 87205; 87426; 87804; 93005; 93306; 94640; 96365; 96375; 99291; G0378; J1450; J2543